=== PATIENT | female | born 1990 | race Caucasian/White ===

== ENCOUNTER 2016-11-25 15:17 | Emergency (ER) | payer MEDICAID ==
[~2016-11-25] VITALS: Ht 160 cm; Wt 68.0 kg
[~2016-11-25 15:17] MED LIST: CLIN150 PO; IBUP800T23 PO; MAGICADU2 SWISH-SWAL; ZANT150T2 PO; ZOFR4TAB3 SL
[2016-11-25 15:26] VITALS: BP 136/91; PULSE 135; RESP 28; TEMP 98.3; O2SAT 99
[2016-11-25] MEDS ORDERED: SODIUM CHLOR 0.9% 1000 ML INJ 1,000 ML IV SCH (15:31)
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
[2016-11-25] MEDS ORDERED: FAMOTIDINE 20 MG/2 ML VIAL IV PUSH ONE (15:45)
[2016-11-25] MEDS ORDERED: SODIUM CHLORIDE 0.9% FLUSH 10 ML FLUSH IVF PRN (15:45)
[2016-11-25 16:10] VITALS: BP 136/91; PULSE 112; RESP 19; O2SAT 98
[2016-11-25 16:15] LABS: AUTOMATED NEUTROPHIL # 15.5 TH/MM3 (1.8-7.7); BASOPHIL # 0.2 TH/MM3 (0-0.2); BASOPHIL % 0.9 % (0.0-2.0); EOSINOPHIL % 0.2 % (0.0-4.0); HEMATOCRIT 33.5 % (35.0-46.0); HEMO FLAGS DIFF FINAL; LYMPH % 21.4 % (9.0-44.0); LYMPHOCYTE # 4.6 TH/MM3 (1.0-4.8); MEAN CELL VOLUME 87.8 FL (80.0-100.0); MEAN CORPUSCULAR HEMOGLOBIN 29.9 PG (27.0-34.0); MEAN CORPUSCULAR HGB CONC 34.1 % (32.0-36.0); MONO % 5.6 % (0.0-8.0); NEUT % 71.9 % (16.0-70.0); PLATELET COUNT 391 TH/MM3 (150-450); RED BLOOD COUNT 3.81 MIL/MM3 (4.00-5.30); WHITE BLOOD COUNT 21.6 TH/MM3 (4.0-11.0)
[2016-11-25 16:30] LABS: ANION GAP 9 MEQ/L (5-15); AST (GOT) 13 U/L (15-37); BICARBONATE 24.2 MEQ/L (21.0-32.0); BLOOD UREA NITROGEN 7 MG/DL (7-18); CHLORIDE 108 MEQ/L (98-107); GLOMERULAR FILTRATION RATE 128 ML/MIN (>89); POTASSIUM 3.7 MEQ/L (3.5-5.1); SODIUM (NA) 141 MEQ/L (136-145)
[2016-11-25 16:33] LABS: ALKALINE PHOSPHATASE 75 U/L (45-117); ALT (GPT) 19 U/L (10-53); TOTAL BILIRUBIN ADULT 0.3 MG/DL (0.2-1.0)
[2016-11-25 16:42] LABS: APTT (PATIENT) 26.8 SEC (24.3-30.1); INTERNATIONAL NORMALIZED RATIO 0.9 RATIO; PROTHROMBIN TIME - PATIENT 10.1 SEC (9.8-11.6)
[2016-11-25] MEDS ORDERED: ALUMINUM/MAGNESIUM/SIMETH 30 ML CUP PO ONE (16:45)
[2016-11-25] MEDS ORDERED: ONDANSETRON HCL 4 MG/2 ML VIAL IV PUSH ONE (16:45)
[2016-11-25] MEDS ORDERED: LIDOCAINE VISCOUS 2% SOLN 15 ML UDC PO ONE (16:45)
[2016-11-25 16:54] VITALS: BP 141/77; PULSE 103; RESP 20; O2SAT 98
[2016-11-25] MEDS ORDERED: PROCHLORPERAZINE INJ 10 MG/2 ML VIAL IV PUSH ONE (17:30)
[2016-11-25] MEDS ORDERED: diphenhydrAMINE HCL 50 MG/ML VIAL IV PUSH ONE (17:30)
--- NOTE | 2016-11-25 17:43 | PD ---
Physical Exam Date Seen by Provider: Nov 25, 2016 Time Seen by Provider: 17:41 Narrative The patient is a 26-year-old female was initially evaluated by the previous physician, Dr. Robles. Please refer to the initial history, physical, diagnostic evaluation, and treatment modality plan. Data Data Last Documented VS Vital Signs Date Time Temp Pulse Resp B/P Pulse Ox O2 Delivery O2 Flow Rate FiO2 11/25/16 18:32 97 16 116/74 97 Room Air 11/25/16 15:26 98.3 Orders Complete Blood Count With Diff (11/25/16 15:31) Comprehensive Metabolic Panel (11/25/16 15:31) Lipase (11/25/16 15:31) Prothrombin Time / Inr (Pt) (11/25/16 15:31) Type And Screen (11/25/16 15:31) Ecg Monitoring (11/25/16 15:31) Iv Access Insert/Monitor (11/25/16 15:31) Oximetry (11/25/16 15:31) Sodium Chlor 0.9% 1000 Ml Inj (Ns 1000 M (11/25/16 15:31) Sodium Chloride 0.9% Flush (Ns Flush) (11/25/16 15:45) Electrocardiogram (11/25/16 15:31) Famotidine Inj (Pepcid Inj) (11/25/16 15:45) Act Partial Throm Time (Ptt) (11/25/16 16:05) Al-Mag Hy-Si 40-40-4 Mg/Ml Liq (Mag-Al P (11/25/16 16:45) Lidocaine 2% Viscous (Xylocaine 2% Visco (11/25/16 16:45) Ondansetron Inj (Zofran Inj) (11/25/16 16:45) Prochlorperazine Inj (Compazine Inj) (11/25/16 17:30) Diphenhydramine Inj (Benadryl Inj) (11/25/16 17:30) Sodium Chlor 0.9% 1000 Ml Inj (Ns 1000 M (11/25/16 19:15) Labs Laboratory Tests Test 11/25/16 16:05 White Blood Count 21.6 TH/MM3 Red Blood Count 3.81 MIL/MM3 Hemoglobin 11.4 GM/DL Hematocrit 33.5 % Mean Corpuscular Volume 87.8 FL Mean Corpuscular Hemoglobin 29.9 PG Mean Corpuscular Hemoglobin 34.1 % Concent Red Cell Distribution Width 14.0 % Platelet Count 391 TH/MM3 Mean Platelet Volume 9.2 FL Neutrophils (%) (Auto) 71.9 % Lymphocytes (%) (Auto) 21.4 % Monocytes (%) (Auto) 5.6 % Eosinophils (%) (Auto) 0.2 % Basophils (%) (Auto) 0.9 % Neutrophils # (Auto) 15.5 TH/MM3 Lymphocytes # (Auto) 4.6 TH/MM3 Monocytes # (Auto) 1.2 TH/MM3 Eosinophils # (Auto) 0.0 TH/MM3 Basophils # (Auto) 0.2 TH/MM3 CBC Comment DIFF FINAL Differential Comment Prothrombin Time 10.1 SEC Prothromb Time International 0.9 RATIO Ratio Activated Partial 26.8 SEC Thromboplast Time Sodium Level 141 MEQ/L Potassium Level 3.7 MEQ/L Chloride Level 108 MEQ/L Carbon Dioxide Level 24.2 MEQ/L Anion Gap 9 MEQ/L Blood Urea Nitrogen 7 MG/DL Creatinine 0.57 MG/DL Estimat Glomerular Filtration 128 ML/MIN Rate Random Glucose 80 MG/DL Calcium Level 8.5 MG/DL Total Bilirubin 0.3 MG/DL Aspartate Amino Transf 13 U/L (AST/SGOT) Alanine Aminotransferase 19 U/L (ALT/SGPT) Alkaline Phosphatase 75 U/L Total Protein 6.1 GM/DL Albumin 2.7 GM/DL Lipase 147 U/L Blood Type A POSITIVE Antibody Screen NEGATIVE [facility] Medical Record Reviewed: Yes Supervised Visit with MAHAD: No Interpretation(s) Laboratory Tests Test 11/25/16 16:05 White Blood Count 21.6 TH/MM3 Red Blood Count 3.81 MIL/MM3 Hemoglobin 11.4 GM/DL Hematocrit 33.5 % Mean Corpuscular Volume 87.8 FL Mean Corpuscular Hemoglobin 29.9 PG Mean Corpuscular Hemoglobin 34.1 % Concent Red Cell Distribution Width 14.0 % Platelet Count 391 TH/MM3 Mean Platelet Volume 9.2 FL Neutrophils (%) (Auto) 71.9 % Lymphocytes (%) (Auto) 21.4 % Monocytes (%) (Auto) 5.6 % Eosinophils (%) (Auto) 0.2 % Basophils (%) (Auto) 0.9 % Neutrophils # (Auto) 15.5 TH/MM3 Lymphocytes # (Auto) 4.6 TH/MM3 Monocytes # (Auto) 1.2 TH/MM3 Eosinophils # (Auto) 0.0 TH/MM3 Basophils # (Auto) 0.2 TH/MM3 CBC Comment DIFF FINAL Differential Comment Prothrombin Time 10.1 SEC Prothromb Time International 0.9 RATIO Ratio Activated Partial 26.8 SEC Thromboplast Time Sodium Level 141 MEQ/L Potassium Level 3.7 MEQ/L Chloride Level 108 MEQ/L Carbon Dioxide Level 24.2 MEQ/L Anion Gap 9 MEQ/L Blood Urea Nitrogen 7 MG/DL Creatinine 0.57 MG/DL Estimat Glomerular Filtration 128 ML/MIN Rate Random Glucose 80 MG/DL Calcium Level 8.5 MG/DL Total Bilirubin 0.3 MG/DL Aspartate Amino Transf 13 U/L (AST/SGOT) Alanine Aminotransferase 19 U/L (ALT/SGPT) Alkaline Phosphatase 75 U/L Total Protein 6.1 GM/DL Albumin 2.7 GM/DL Lipase 147 U/L Blood Type A POSITIVE Antibody Screen NEGATIVE Differential Diagnosis Differential diagnosis includes hyperemesis gravidarum, gastroparesis, gastritis , Elis-Beltran tear, peptic ulcer disease, dehydration, electrolyte abnormality. Narrative Course The patient was initially evaluated by the previous physician. Please refer to the initial history, physical, diagnostic evaluation, and treatment modality plan. The patient was signed out at 5 PM with reevaluation of symptoms and by mouth challenge pending. The patient was reevaluated at 6 PM, her symptoms had improved. The patient was given an oral challenge with curtis don. The patient was able to tolerate curtis don. I had a discussion with the patient regarding the etiology including possible peptic ulcer disease, gastritis, Elis-Beltran tear. The patient will be placed on Zantac and Zofran, is advised clear liquid diet and advance as tolerated. She is advised to symptoms persist to follow-up with gastroenterology and [facility]NAGER. A call will be placed to the patient's current living situation, a assisted for women. Diagnosis Primary Impression: Gastritis Qualified Code: K29.71 - Gastritis with hemorrhage, unspecified chronicity, unspecified gastritis type Patient Instructions: General Instructions Additional Instruction: Zantac and Zofran as directed. Clear liquid diet and advance as tolerated. Follow-up with gastroenterology and/or OB as needed. Med/Other Pt SpecificInfo: Prescription(s) given Scripts Ondansetron Odt (Zofran Odt)4 Mg Tab4 Mg SL Q6HR PRN (Nausea/Vomiting) #10 TAB Ref 0 Prov:Steven Henriquez MD 11/25/16 Ranitidine (Zantac 150 Maximum Strength)150 Mg [id number] Mg PO BID 14 Days Prov:Steven Henriquez MD 11/25/16 Disposition: 01 DISCHARGE HOME Condition: Stable Steven Henriquez MD Nov 25, 2016 17:42
[2016-11-25 18:32] VITALS: BP 116/74; PULSE 97; RESP 16; O2SAT 97
[2016-11-25] MEDS ORDERED: ZOFR4TAB3 SL (19:09)
[2016-11-25] MEDS ORDERED: ZANTTAB PO (19:09)
[2016-11-25] MEDS ORDERED: SODIUM CHLOR 0.9% 1000 ML INJ 1,000 ML IV ONE (19:15)
--- NOTE | 2016-11-25 22:25 | EKG ---
Date Performed: 11/25/2016 Time Performed: 17:05:10 PTAGE: 26 years EKG: SINUS TACHYCARDIA ABNORMAL RHYTHM ECG PREVIOUS TRACING : 04/15/2015 18.28 Compared to the previous tracing rate faster DOCTOR: Azucena Pettit Interpretating Date/Time 11/25/2016 22:23:16
[2017-01-19] MEDS ORDERED: ZANT150T2 PO (11:48)
[2017-02-18] MEDS ORDERED: PRENMIS9 PO (11:36)
== END 2016-11-25 22:50 | disposition home or self-care (01) ==
LOC: NEPB 15:17
DX: O26.892 Other specified pregnancy related conditions, second trimester (principal); K29.71 Gastritis, unspecified, with bleeding; R00.0 Tachycardia, unspecified; Z3A.20 20 weeks gestation of pregnancy
CPT/HCPCS: 80053; 83690; 85025; 85610; 85730; 86850; 86900; 86901; 93005; 96361; 96374; 96375; 99285; J0780; J1200; J2405; J7030

== ENCOUNTER 2017-01-10 23:24 | Emergency (ER) | payer MEDICAID ==
[~2017-01-10 23:24] MED LIST changes: -CLIN150 PO; -IBUP800T23 PO; -MAGICADU2 SWISH-SWAL; -ZANT150T2 PO; +ZANTTAB PO
[2017-01-11 00:42] LABS: AMPHETAMINE, URINE NEG (NEG); BARBITURATES, URINE NEG (NEG); COCAINE, URINE NEG (NEG)
[2017-01-11 00:45] LABS: BLOOD, URINE NEG (NEG); COMMENT (UR) CULT NOT INDICATED; CULTURE IF INDICATED CULT NOT INDICATED; GLUCOSE,URINE NEG (NEG); KETONE, URINE NEG (NEG); MUCUS URINE FEW /lpf (OCC); NITRITE,URINE NEG (NEG); SQUAMOUS EPITHELIAL CELL URINE <1 /hpf (0-5); URINE COLOR LIGHT-YELLOW (YELLW/STRAW)
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
[2017-01-11] MEDS ORDERED: METR-1 PO (01:03)
[2017-01-15 11:28] LABS: BATH SALTS (MDPV) UR NEG (NEG); ECSTASY (MDMA) UR NEG (NEG); GABAPENTIN UR NEG (NEG); HEROIN (6-ACETYLMORPHINE) UR NEG (NEG); HYDROMORPHONE U NEG (NEG); K2 SPICE UR NEG (NEG); OBMETHADONE UR NEG (NEG); OXYCODONE (PERCODAN) NEG (NEG); PHENCYCLIDINE URINE NEG (NEG)
[2017-01-19] MEDS ORDERED: ZANT150T2 PO (11:48)
[2017-02-18] MEDS ORDERED: PRENMIS9 PO (11:36)
== END 2017-01-11 01:06 | disposition home or self-care (01) ==
LOC: HOBED 23:24
DX: O26.892 Other specified pregnancy related conditions, second trimester (principal); N89.8 Other specified noninflammatory disorders of vagina; R10.30 Lower abdominal pain, unspecified; Z72.0 Tobacco use
CPT/HCPCS: 76815; 80307; 81001; 84112; 87210; 99284; G0481

== ENCOUNTER 2017-02-09 13:07 | Emergency (ER) | payer MEDICAID ==
[~2017-02-09 13:07] MED LIST changes: +METR-1 PO; +ZANT150T2 PO
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
[2017-02-18] MEDS ORDERED: PRENMIS9 PO (11:36)
== END 2017-02-09 14:18 | disposition short-term general hospital (02) ==
LOC: HOBED 13:07
DX: O99.613 Diseases of the digestive system complicating pregnancy, third trimester (principal); K92.0 Hematemesis; R10.30 Lower abdominal pain, unspecified; O30.003 Twin pregnancy, unspecified number of placenta and unspecified number of amniotic sacs, third trimester; Z3A.29 29 weeks gestation of pregnancy
CPT/HCPCS: 59025

== ENCOUNTER 2017-02-09 14:45 | Inpatient (IN) | payer MEDICAID ==
[~2017-02-09] VITALS: Ht 160 cm; Wt 80.8 kg
[~2017-02-09 14:45] MED LIST changes: -METR-1 PO; -ZANTTAB PO; -ZOFR4TAB3 SL
[2017-02-09 14:47] VITALS: BP 125/86; PULSE 118; RESP 24; TEMP 97.5; O2SAT 98
[2017-02-09] MEDS ORDERED: SODIUM CHLORIDE 0.9% FLUSH 10 ML FLUSH IVF PRN (15:45)
[2017-02-09 15:57] VITALS: O2SAT 97
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
[2017-02-09 16:09] LABS: AUTOMATED NEUTROPHIL # 17.6 TH/MM3 (1.8-7.7); BASOPHIL # 0.3 TH/MM3 (0-0.2); BASOPHIL % 1.1 % (0.0-2.0); EOSINOPHIL # 0.1 TH/MM3 (0-0.4); EOSINOPHIL % 0.2 % (0.0-4.0); HEMATOCRIT 36.1 % (35.0-46.0); LYMPH % 21.5 % (9.0-44.0); LYMPHOCYTE # 5.1 TH/MM3 (1.0-4.8); MEAN CORPUSCULAR HEMOGLOBIN 29.5 PG (27.0-34.0); MEAN CORPUSCULAR HGB CONC 33.2 % (32.0-36.0); MONO % 3.4 % (0.0-8.0); NEUT % 73.8 % (16.0-70.0); PLATELET COUNT 498 TH/MM3 (150-450); RED BLOOD COUNT 4.05 MIL/MM3 (4.00-5.30); RED CELL DISTRIBUTION WIDTH 14.1 % (11.6-17.2); WHITE BLOOD COUNT 23.8 TH/MM3 (4.0-11.0)
[2017-02-09 16:13] LABS: HEMO FLAGS AUTO DIFF
[2017-02-09] MEDS ORDERED: MORPHINE SULFATE 4 MG/ML INJ IV PUSH ONE (16:15)
[2017-02-09] MEDS ORDERED: ONDANSETRON HCL 4 MG/2 ML VIAL IV PUSH ONE ×2 (16:15→18:45)
[2017-02-09 16:28] LABS: APTT (PATIENT) 22.3 SEC (24.3-30.1); INTERNATIONAL NORMALIZED RATIO 0.9 RATIO; PROTHROMBIN TIME - PATIENT 9.9 SEC (9.8-11.6)
[2017-02-09 16:29] LABS: BICARBONATE 23.8 MEQ/L (21.0-32.0); POTASSIUM 4.1 MEQ/L (3.5-5.1)
[2017-02-09 16:41] LABS: BANDS 3 % (0-6); NEUTROPHIL # MANUAL DIFF 19.3 TH/MM3 (1.8-7.7); POLYS (SEG NEUTROPHILS) 78 % (16-70); WBC DIFF SAMPLE 100
[2017-02-09 16:42] LABS: PLATELET ESTIMATE SMEAR HIGH (NORMAL); PLATELET MORPHOLOGY NORMAL (NORMAL); SCAN/DIFF FINAL DIFF MANUAL
--- NOTE | 2017-02-09 18:03 | RADRPT ---
EXAM DATE/TIME: 02/09/2017 17:43 [facility] COMPARISON: CT ABDOMEN & PELVIS W/O CONTRAST, August 24, 2013, 18:56. INDICATIONS : Patient vomiting blood. ORAL CONTRAST: No oral contrast ingested. RADIATION DOSE: 10.33 CTDIvol (mGy) MEDICAL HISTORY : Renal calculi. History of GI bleed SURGICAL HISTORY : Appendectomy. Splenectomy. Cholecystectomy. ENCOUNTER: Initial ACUITY: 1 day PAIN SCALE: 5/10 LOCATION: Bilateral upper quadrant TECHNIQUE: Volumetric scanning of the abdomen and pelvis was performed. Using automated exposure control and ad justment of the mA and/or kV according to patient size, radiation dose was kept as low as reasonably achievable to obtain optimal diagnostic quality images. FINDINGS: There is no CT evidence of acute appendicitis. There is evidence of a twin . There are mul tiple calcified nonobstructing left renal calculi. There is mild ureteropelvicaliectasis on the righ t without definite obstructing calculus within the right ureter. There is a tiny calcified nonobstruc ting right renal calculus also. Evaluation of the solid organs of the abdomen is limited by the lack of intravenous contrast. Mild degenerative changes and scoliosis of the lumbar spine is noted. CONCLUSION: 1. No CT evidence of acute appendicitis. 2. Mild ureteropelvicaliectasis on the right without definite calcified obstructing calculus noted. 3. Multiple tiny calcified nonobstructing bilateral renal calculi. 4. Twin . 5. Mild scoliosis of the lumbar spine. Donnell Schneider MD on February 09, 2017 at 17:53 Board Certified Radiologist. This report was verified electronically.
[2017-02-09 18:48] VITALS: BP 130/72; PULSE 103; RESP 18; O2SAT 96
[2017-02-09] MEDS ORDERED: ZOLPIDEM TARTRATE 5 MG TAB PO PRN (19:15)
[2017-02-09] MEDS ORDERED: CHLORHEXIDINE GLUCONATE 2 % 1 PACK (2 CLOTHS) TOP PRN (19:15)
[2017-02-09] MEDS ORDERED: SENNOSIDES 8.6 MG TAB PO PRN (19:15)
[2017-02-09] MEDS ORDERED: LACTULOSE SYRUP 20 GM/30 ML CUP PO PRN (19:15)
[2017-02-09] MEDS ORDERED: METOCLOPRAMIDE HCL 10 MG/2 ML VIAL IV PRN (19:15)
[2017-02-09] MEDS ORDERED: MAGNESIUM HYDROXIDE SUSP 30 ML CUP PO PRN (19:15)
[2017-02-09] MEDS ORDERED: BISACODYL 10 MG SUPP RECTAL PRN (19:15)
[2017-02-09] MEDS ORDERED: MISCELLANEOUS NURSING INFORMATION XX SCH (19:15)
[2017-02-09] MEDS ORDERED: RESP: ALBUTEROL 2.5 MG/IPRATROPIUM 0.5 MG NEB (PRN) INH (19:15)
[2017-02-09] MEDS ORDERED: PROCHLORPERAZINE 25 MG SUPP RECTAL PRN (19:15)
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
[2017-02-09] MEDS: PANTOPRAZOLE SODIUM 40 MG VIAL IV SCH (20:31)
[2017-02-09] MEDS: SODIUM CHLOR 0.9% 1000 ML INJ 1,000 ML IV SCH ×2 (20:41→22:06)
[2017-02-09] MEDS: MORPHINE SULFATE 4 MG/ML INJ IV PRN ×2 (20:42→23:13)
[2017-02-09] MEDS: DOCUSATE SODIUM 50 MG/SENNA 8.6 MG TAB PO SCH (21:00)
[2017-02-09] MEDS: FAMOTIDINE 20 MG TAB PO SCH (21:00)
[2017-02-09] MEDS: SODIUM CHLORIDE 0.9% FLUSH 10 ML FLUSH SCH (21:00)
[2017-02-09 21:43] LABS: HEMATOCRIT 35.4 % (35.0-46.0); REVIEW FLAG FINAL
[2017-02-09 22:00] VITALS: BP 116/78; PULSE 94; RESP 20; TEMP 98; O2SAT 96
[2017-02-10] VITALS (12 sets, daily range): BP systolic 104–125; BP diastolic 59–76; PULSE 67–94; RESP 14–20; TEMP 98.2–98.5; O2SAT 95–98
[2017-02-10] MEDS: ONDANSETRON HCL 4 MG/2 ML VIAL IV PRN ×4 (02:53→20:00)
[2017-02-10] MEDS: MORPHINE SULFATE 4 MG/ML INJ IV PRN ×7 (02:53→20:01)
[2017-02-10] MEDS: CHLORHEXIDINE GLUCONATE 2 % 1 PACK (2 CLOTHS) TOP SCH (04:00)
[2017-02-10] MEDS ORDERED: HYDROmorphone HCL PF 1 MG/ML VIAL IV ONE (05:45)
[2017-02-10 06:03] LABS: BASOPHIL # 0.2 TH/MM3 (0-0.2); BASOPHIL % 0.7 % (0.0-2.0); EOSINOPHIL # 0.2 TH/MM3 (0-0.4); EOSINOPHIL % 0.9 % (0.0-4.0); HEMATOCRIT 32.3 % (35.0-46.0); LYMPH % 20.1 % (9.0-44.0); LYMPHOCYTE # 4.6 TH/MM3 (1.0-4.8); MEAN CELL VOLUME 89.3 FL (80.0-100.0); MEAN CORPUSCULAR HEMOGLOBIN 29.7 PG (27.0-34.0); MEAN CORPUSCULAR HGB CONC 33.2 % (32.0-36.0); MONO % 8.8 % (0.0-8.0); NEUT % 69.5 % (16.0-70.0); PLATELET COUNT 424 TH/MM3 (150-450); RED BLOOD COUNT 3.62 MIL/MM3 (4.00-5.30); RED CELL DISTRIBUTION WIDTH 14.2 % (11.6-17.2)
[2017-02-10 06:08] LABS: HEMO FLAGS AUTO DIFF
[2017-02-10] MEDS: SODIUM CHLOR 0.9% 1000 ML INJ 1,000 ML IV SCH (06:25)
[2017-02-10 06:31] LABS: ALKALINE PHOSPHATASE 88 U/L (45-117); ALT (GPT) 20 U/L (10-53); ANION GAP 10 MEQ/L (5-15); AST (GOT) 14 U/L (15-37); BICARBONATE 23.2 MEQ/L (21.0-32.0); BLOOD UREA NITROGEN 5 MG/DL (7-18); CHLORIDE 108 MEQ/L (98-107); GLOMERULAR FILTRATION RATE 156 ML/MIN (>89); MAGNESIUM 1.6 MG/DL (1.5-2.5); POTASSIUM 3.6 MEQ/L (3.5-5.1); SODIUM (NA) 141 MEQ/L (136-145); TOTAL BILIRUBIN ADULT 0.3 MG/DL (0.2-1.0)
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
[2017-02-10 07:41] LABS: BURR CELLS 1+ (NORMAL)
[2017-02-10 07:42] LABS: ACANTHOCYTES OCC (NORMAL); PLATELET ESTIMATE SMEAR HIGH (NORMAL); PLATELET MORPHOLOGY NORMAL (NORMAL); SCAN/DIFF AUTO DIFF CONFIRMED
[2017-02-10] MEDS: SODIUM CHLORIDE 0.9% FLUSH 10 ML FLUSH SCH ×2 (08:02→20:03)
[2017-02-10] MEDS: PANTOPRAZOLE SODIUM 40 MG VIAL IV SCH ×2 (08:03→20:01)
[2017-02-10] MEDS: FAMOTIDINE 20 MG TAB PO SCH ×2 (08:03→20:02)
[2017-02-10] MEDS: DOCUSATE SODIUM 50 MG/SENNA 8.6 MG TAB PO SCH ×2 (08:04→20:03)
[2017-02-10] MEDS ORDERED: LIDOCAINE HCL 2% JELLY 5 ML SYRINGE TOPICAL ONE ×2 (08:30→09:30)
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
[2017-02-10] MEDS: DEXT 5%-NACL 0.45% 1000 ML INJ 1,000 ML IV SCH ×2 (09:23→20:00)
[2017-02-10] MEDS ORDERED: PHENYLEPHRINE HCL 0.5% NASAL SPRAY 15 ML BTL NASAL ONE (09:30)
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
[2017-02-10] MEDS ORDERED: MULTIVIT/MIN/PREN/FOL AC/IRON PRENATAL TAB PO SCH (10:15)
[2017-02-10 10:36] LABS: HEMATOCRIT 32.9 % (35.0-46.0); REVIEW FLAG FINAL
--- NOTE | 2017-02-10 10:40 | HHI.GIFU ---
Subjective Remarks Resting in bed. Has continued to have nausea/vomiting. States she had 6 episodes with hematemesis overnight- varying from scant amount of red blood to "1/2 a cup." D/W patient prior findings for same symptoms- esophagitis/ gastritis and that we would like to avoid invasive procedures/anesthesia, as she is 30 weeks with twins. Pt and significant other report that they would really like to have EGD to know for sure what is going on. Explained that having EGD would likely not change her treatment at this time, as if this is octavio stockton tear or esophagitis/gastritis, she is receiving treatment already. (Aydee Garcia) Objective Vitals I&O Vital Signs Date Time Temp Pulse Resp B/P Pulse Ox O2 Delivery O2 Flow Rate FiO2 02/10/17 06:00 94 02/10/17 04:00 77 02/10/17 04:00 98.3 77 16 104/59 95 02/10/17 02:00 79 02/10/17 00:00 98.2 78 20 125/68 95 02/10/17 00:00 78 02/09/17 22:00 94 02/09/17 22:00 98.0 94 20 116/78 96 02/09/17 21:03 16 02/09/17 18:48 103 18 130/72 96 Room Air 02/09/17 15:57 97 Room Air 02/09/17 14:47 97.5 118 24 125/86 98 Room Air I/O 02/09/17 02/09/17 02/09/17 02/10/17 02/10/17 02/10/17 07:00 15:00 23:00 07:00 15:00 23:00 Intake Total 614 ml Balance 614 ml Intake IV Total 614 ml # Voids 5 Laboratory Laboratory Tests Test 02/09/17 02/09/17 02/09/17 02/10/17 15:40 20:57 21:45 04:43 White Blood Count 23.8 23.0 Red Blood Count 4.05 3.62 Hemoglobin 12.0 11.9 10.7 Hematocrit 36.1 35.4 32.3 Mean Corpuscular Volume 89.0 89.3 Mean Corpuscular Hemoglobin 29.5 29.7 Mean Corpuscular Hemoglobin 33.2 33.2 Concent Red Cell Distribution Width 14.1 14.2 Platelet Count 498 424 Mean Platelet Volume 10.5 10.2 Neutrophils (%) (Auto) 73.8 69.5 Lymphocytes (%) (Auto) 21.5 20.1 Monocytes (%) (Auto) 3.4 8.8 Eosinophils (%) (Auto) 0.2 0.9 Basophils (%) (Auto) 1.1 0.7 Neutrophils # (Auto) 17.6 16.0 Lymphocytes # (Auto) 5.1 4.6 Monocytes # (Auto) 0.8 2.0 Eosinophils # (Auto) 0.1 0.2 Basophils # (Auto) 0.3 0.2 CBC Comment AUTO DIFF AUTO DIFF Differential Total Cells 100 Counted Neutrophils % (Manual) 78 Band Neutrophils % 3 Lymphocytes % 17 Monocytes % 2 Neutrophils # (Manual) 19.3 Differential Comment FINAL DIFF AUTO DIFF MANUAL CONFIRMED Platelet Estimate HIGH HIGH Platelet Morphology Comment NORMAL NORMAL Red Cell Morphology Comment NORMAL Prothrombin Time 9.9 Prothromb Time International 0.9 Ratio Activated Partial 22.3 Thromboplast Time Sodium Level 138 141 Potassium Level 4.1 3.6 Chloride Level 105 108 Carbon Dioxide Level 23.8 23.2 Anion Gap 9 10 Blood Urea Nitrogen 6 5 Creatinine 0.49 0.48 Estimat Glomerular Filtration 153 156 Rate Random Glucose 84 72 Calcium Level 9.6 8.4 Lipase 162 Blood Type A POSITIVE Antibody Screen NEGATIVE Nasal Screen MRSA (PCR) MRSA NOT DETECTED Snyder Cells 1+ Acanthocytes OCC Phosphorus Level 3.3 Magnesium Level 1.6 Total Bilirubin 0.3 Aspartate Amino Transf 14 (AST/SGOT) Alanine Aminotransferase 20 (ALT/SGPT) Alkaline Phosphatase 88 Total Protein 5.8 Albumin 2.3 Imaging Last Impressions Abdomen/Pelvis CT 02/09/17 1706 Signed Impressions: Service Date/Time: Thursday, February 09, 2017 17:43 - CONCLUSION: 1. No CT evidence of acute appendicitis. 2. Mild ureteropelvicaliectasis on the right without definite calcified obstructing calculus noted. 3. Multiple tiny calcified nonobstructing bilateral renal calculi. 4. Twin . 5. Mild scoliosis of the lumbar spine. Donnell Schneider MD Physical Exam HEENT: Normocephalic; atraumatic; no jaundice. CHEST: CTA CARDIAC: RRR ABDOMEN: Soft, nondistended, nontender; no hepatosplenomegaly; bowel sounds are present in all four quadrants. EXTREMITIES: No clubbing, cyanosis, or edema. SKIN: Normal; no rash; no jaundice. AIR QUALITY CONSULTANT: No focal deficits; alert and oriented times three. (Aydee Garcia) Assessment and Plan Plan ASSESSMENT: - GIB, Hematemesis. Pt has hx of hematemesis and has had multiple endoscopies for this in past, both with esophagitis/gastritis as findings. She is currently 30 weeks with twins. States she had 6 episodes with hematemesis overnight- varying from scant amount of red blood to "1/2 a cup." H/H has remained stable and is 10.7/32.3. D/W patient prior findings for same symptoms- esophagitis/gastritis and that we would like to avoid invasive procedures/anesthesia, as she is 30 weeks with twins secondary to increased risks for her and her . Pt and significant other report that they would really like to have EGD to know for sure what is going on. Explained that having EGD would likely not change her treatment at this time, as if this is octavio stockton tear or esophagitis/gastritis, she is receiving treatment already. At this time, her HH is stable. We will change protonix bid dosing to protonix gtt and monitor HH. Recommend trying NGT to [facility] again. Would still try to avoid procedures unless significant active GI bleeding with drop in Hgb. D/W patient. Suspect octavio stockton tear vs. gastritis vs. esophagitis. - Anemia, blood loss. Very mild. Slowly trending down, but likely partly dilutional as well. 10.7/32.3. - Leukocytosis, likely reactive secondary to vomiting and - IUP, 30 weeks with twins per OB service PLAN: - NPO - Attempt NGT placement and place to [facility] - Monitor HH q6h - Change protonix to protonix gtt - Notify GI of significant active GI bleeding or decrease in H/H - Supportive care - Further recommendations to follow based on results of above - EGD only if significant active GI bleeding with drop in Hgb - Pt seen and examined by Dr. Ravi and myself and this note is written on his behalf (Aydee Garcia) Physician Comments Seen and examined with [facility], continues to complain of some hemetemesis. No gi intervention unless active bleeding. Unable to place NG. Clear liquid diet, zofran for nausea. (Virgen Ravi MD) Aydee Garcia Feb 10, 2017 10:40 Virgen Ravi MD Feb 10, 2017 14:30
[2017-02-10 12:46] LABS: HEMATOCRIT 34.4 % (35.0-46.0); REVIEW FLAG FINAL
[2017-02-10 16:40] LABS: HEMATOCRIT 32.3 % (35.0-46.0); REVIEW FLAG FINAL
[2017-02-11] VITALS (14 sets, daily range): BP systolic 106–129; BP diastolic 59–76; PULSE 66–96; RESP 15–22; TEMP 97.6–98.9; O2SAT 96–98
[2017-02-11] MEDS: MORPHINE SULFATE 4 MG/ML INJ IV PRN ×7 (00:02→14:10)
[2017-02-11] MEDS: ONDANSETRON HCL 4 MG/2 ML VIAL IV PRN ×4 (00:31→20:02)
[2017-02-11] MEDS: ACETAMINOPHEN 325 MG TAB PO PRN (00:41)
[2017-02-11 01:08] LABS: HEMATOCRIT 31.3 % (35.0-46.0); REVIEW FLAG FINAL
[2017-02-11] MEDS: CHLORHEXIDINE GLUCONATE 2 % 1 PACK (2 CLOTHS) TOP SCH (04:00)
[2017-02-11 04:40] LABS: HEMATOCRIT 31.4 % (35.0-46.0); MEAN CELL VOLUME 92.3 FL (80.0-100.0); MEAN CORPUSCULAR HEMOGLOBIN 30.3 PG (27.0-34.0); MEAN CORPUSCULAR HGB CONC 32.8 % (32.0-36.0); PLATELET COUNT 414 TH/MM3 (150-450); RED CELL DISTRIBUTION WIDTH 14.3 % (11.6-17.2); REVIEW FLAG FINAL; WHITE BLOOD COUNT 15.4 TH/MM3 (4.0-11.0)
[2017-02-11 04:42] LABS: BICARBONATE 20.3 MEQ/L (21.0-32.0); MAGNESIUM 1.8 MG/DL (1.5-2.5); POTASSIUM 3.6 MEQ/L (3.5-5.1)
[2017-02-11] MEDS: FAMOTIDINE 20 MG TAB PO SCH ×2 (08:18→21:00)
[2017-02-11] MEDS: DEXT 5%-NACL 0.45% 1000 ML INJ 1,000 ML IV SCH ×2 (08:18→14:21)
[2017-02-11] MEDS: DOCUSATE SODIUM 50 MG/SENNA 8.6 MG TAB PO SCH ×2 (08:18→21:00)
[2017-02-11] MEDS: SODIUM CHLORIDE 0.9% FLUSH 10 ML FLUSH SCH ×2 (08:18→20:02)
[2017-02-11] MEDS: PANTOPRAZOLE SODIUM 40 MG VIAL IV SCH ×2 (08:18→20:02)
[2017-02-11] MEDS: SODIUM CHLORIDE 0.9% FLUSH 10 ML FLUSH PRN ×2 (10:41→13:33)
--- NOTE | 2017-02-11 10:53 | HHI.PR ---
Objective Vitals Vital Signs Date Time Temp Pulse Resp B/P Pulse Ox O2 Delivery O2 Flow Rate FiO2 02/11/17 08:00 87 02/11/17 08:00 97.6 87 20 129/67 02/11/17 06:00 84 02/11/17 04:00 66 02/11/17 04:00 98.3 66 15 106/60 98 02/11/17 02:00 84 02/11/17 00:00 96 02/11/17 00:00 98.1 96 22 115/76 96 02/10/17 22:00 89 02/10/17 20:00 98.3 91 20 119/67 98 02/10/17 20:00 89 02/10/17 18:00 82 02/10/17 16:00 98.4 67 14 106/68 97 02/10/17 16:00 67 02/10/17 14:00 82 02/10/17 12:00 98.5 82 16 122/76 96 02/10/17 12:00 85 I/O 02/10/17 02/10/17 02/10/17 02/11/17 02/11/17 02/11/17 07:00 15:00 23:00 07:00 15:00 23:00 Intake Total 614 ml 1221 ml 1702 ml 1340 ml Balance 614 ml 1221 ml 1702 ml 1340 ml Intake Oral 480 ml 1080 ml 720 ml IV Total 614 ml 741 ml 622 ml 620 ml # Voids 5 3 5 4 # Bowel Movements 0 Result Diagram: 02/11/1730902/11/17309 Sandra Faust MD Feb 11, 2017 10:53
--- NOTE | 2017-02-11 11:16 | PD.CONS ---
HPI Service [facility] Hospitalists Consult Requested By Reason for Consult Medical management Primary Care Physician No Primary Care Physician Diagnoses: (1) 30 weeks gestation of (2) Hematemesis (3) Abdominal pain (4) GI bleed History of Present Illness 26-year-old female with 3 and at 30 weeks gestation presented to the emergency room with complaint of hematemesis, abdominal pain, and nausea. Patient was admitted to the ICU. She has been monitored closely. Her H&H remained stable. She has been followed by GI. Hospitalist service consult requested to assist with medical management. The patient is seen in her room in the ICU. She continues to have persistent nausea, abdominal pain. No vomiting this morning. I did note she had red popsicles this morning. Mostly able to tolerate the liquid diet. She admits to positive movement. No vaginal bleeding. Past Family Social History Allergies: Coded Allergies: Toradol (Verified Allergy, Severe, Rash, 02/09/17) Tramadol (Verified Allergy, Severe, Rash, 02/09/17) Ultram (Verified Allergy, Intermediate, Rash, 02/09/17) Reglan (Verified Adverse Reaction, Intermediate, "ACTED POSSESSED", ) *MDRO Multi-Drug Resistant Organism (Verified Adverse Reaction, Unknown, ) MRSA PCR screen (nares) negative - 02/03/15 & 02/16/15 Cleared per Infection Control MRSA wound (groin) 2011 Physical Exam Vital Signs Vital Signs Date Time Temp Pulse Resp B/P Pulse Ox O2 Delivery O2 Flow Rate FiO2 02/11/17 08:00 87 02/11/17 08:00 97.6 87 20 129/67 02/11/17 06:00 84 02/11/17 04:00 66 02/11/17 04:00 98.3 66 15 106/60 98 02/11/17 02:00 84 02/11/17 00:00 96 02/11/17 00:00 98.1 96 22 115/76 96 02/10/17 22:00 89 02/10/17 20:00 98.3 91 20 119/67 98 02/10/17 20:00 89 02/10/17 18:00 82 02/10/17 16:00 98.4 67 14 106/68 97 02/10/17 16:00 67 02/10/17 14:00 82 02/10/17 12:00 98.5 82 16 122/76 96 02/10/17 12:00 85 Physical Exam GENERAL: This is a well-nourished, well-developed patient, in no apparent distress. CARDIOVASCULAR: Normal rate and regular rhythm without murmurs, gallops, or rubs. RESPIRATORY: Good respiratory efforts. Breath sounds equal and clear to auscultation bilaterally. GASTROINTESTINAL: Abdomen gravid, soft, patient reports diffuse tenderness to palpation. Normal active bowel sounds MUSCULOSKELETAL: Extremities without cyanosis, or edema. NEURO: Alert & Oriented x4 to person, place, time, situation. Moves all ext x4 PSYCH: Appropriate mood and affect. Laboratory Laboratory Tests Test 02/10/17 02/10/17 02/11/17 02/11/17 12:10 16:31 00:17 03:10 Hemoglobin 11.6 10.7 10.5 10.3 Hematocrit 34.4 32.3 31.3 31.4 White Blood Count 15.4 Red Blood Count 3.40 Mean Corpuscular Volume 92.3 Mean Corpuscular Hemoglobin 30.3 Mean Corpuscular Hemoglobin 32.8 Concent Red Cell Distribution Width 14.3 Platelet Count 414 Mean Platelet Volume 10.2 Sodium Level 138 Potassium Level 3.6 Chloride Level 107 Carbon Dioxide Level 20.3 Anion Gap 11 Blood Urea Nitrogen 4 Creatinine 0.41 Estimat Glomerular Filtration 188 Rate Random Glucose 68 Calcium Level 8.0 Phosphorus Level 3.2 Magnesium Level 1.8 Result Diagram: 02/11/17 0310 02/11/17 0310 Imaging Last Impressions Abdomen/Pelvis CT 02/09/17 1706 Signed Impressions: Service Date/Time: Thursday, February 09, 2017 17:43 - CONCLUSION: 1. No CT evidence of acute appendicitis. 2. Mild ureteropelvicaliectasis on the right without definite calcified obstructing calculus noted. 3. Multiple tiny calcified nonobstructing bilateral renal calculi. 4. Twin . 5. Mild scoliosis of the lumbar spine. Donnell Schneider MD Assessment and Plan Assessment and Plan 26-year-old female with twin at 30 weeks gestation admitted with hematemesis, nausea and abdominal pain. Hematemesis/nausea - Continue IV Protonix BID -Follow H&H, hemoglobin stable. Monitor for active bleeding. - Gastroenterology following-Dr. Sandoval - Continue to monitor. Continue clear liquid diet. Advance as tolerated. - -D5 half-normal saline at 84 cc/hour Encourage patient to get out of bed Twin - Supportive care -OB Following- Twin . MFM has been consulted. Patient lives at [facility]. History of illicit drug use. Abdominal pain - Pain control- morphine, and Tylenol - CT abdomen negative for acute process - Recommends titrating down pain meds. Could be round ligament pain related to . No acute pathology on abdominal CT. DVT GI prophylaxis: SCDs, Protonix. Hospitalist will continue to follow. Consider transfer to floor. Sandra Faust MD Feb 11, 2017 11:16
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
--- NOTE | 2017-02-11 15:54 | HHI.GIFU ---
Subjective Remarks Pt was transferred to [facility]. Nurse reports that she has not had any nausea/ vomiting or active GI bleeding since arrival to floor. Pt reports that she vomited multiple times this am with "1/2 cup of red blood" prior to be transferred to 2nd floor. Called and spoke to Hermila, Charge nurse. Nurse was Diane and there was no active bleeding last night or today. HH has remained stable. Nurse does report that when she went to see patient earlier, she had a red popsicle and it looked like she did bring some of this up. C/O lower suprapubic pain that radiates to LLQ- constant stabbing pain, requiring IV pain meds. (Aydee Garcia) Objective Vitals I&O Vital Signs Date Time Temp Pulse Resp B/P Pulse Ox O2 Delivery O2 Flow Rate FiO2 02/11/17 12:46 98.9 16 02/11/17 12:46 82 121/63 02/11/17 10:00 82 02/11/17 08:00 87 02/11/17 08:00 97.6 87 20 129/67 02/11/17 06:00 84 02/11/17 04:00 66 02/11/17 04:00 98.3 66 15 106/60 98 02/11/17 02:00 84 02/11/17 00:00 96 02/11/17 00:00 98.1 96 22 115/76 96 02/10/17 22:00 89 02/10/17 20:00 98.3 91 20 119/67 98 02/10/17 20:00 89 02/10/17 18:00 82 02/10/17 16:00 98.4 67 14 106/68 97 02/10/17 16:00 67 I/O 02/10/17 02/10/17 02/10/17 02/11/17 02/11/17 02/11/17 07:00 15:00 23:00 07:00 15:00 23:00 Intake Total 614 ml 1221 ml 1702 ml 1340 ml Balance 614 ml 1221 ml 1702 ml 1340 ml Intake Oral 480 ml 1080 ml 720 ml IV Total 614 ml 741 ml 622 ml 620 ml # Voids 5 3 5 4 # Bowel Movements 0 Laboratory Laboratory Tests Test 02/10/17 02/11/17 02/11/17 16:31 00:17 03:10 Hemoglobin 10.7 10.5 10.3 Hematocrit 32.3 31.3 31.4 White Blood Count 15.4 Red Blood Count 3.40 Mean Corpuscular Volume 92.3 Mean Corpuscular Hemoglobin 30.3 Mean Corpuscular Hemoglobin 32.8 Concent Red Cell Distribution Width 14.3 Platelet Count 414 Mean Platelet Volume 10.2 Sodium Level 138 Potassium Level 3.6 Chloride Level 107 Carbon Dioxide Level 20.3 Anion Gap 11 Blood Urea Nitrogen 4 Creatinine 0.41 Estimat Glomerular Filtration 188 Rate Random Glucose 68 Calcium Level 8.0 Phosphorus Level 3.2 Magnesium Level 1.8 Imaging Last Impressions Abdomen/Pelvis CT 02/09/17 1706 Signed Impressions: Service Date/Time: Thursday, February 09, 2017 17:43 - CONCLUSION: 1. No CT evidence of acute appendicitis. 2. Mild ureteropelvicaliectasis on the right without definite calcified obstructing calculus noted. 3. Multiple tiny calcified nonobstructing bilateral renal calculi. 4. Twin . 5. Mild scoliosis of the lumbar spine. Donnell Schneider MD Physical Exam HEENT: Normocephalic; atraumatic; no jaundice. CHEST: CTA CARDIAC: RRR ABDOMEN: Soft, nondistended, nontender; no hepatosplenomegaly; bowel sounds are present in all four quadrants. EXTREMITIES: No clubbing, cyanosis, or edema. SKIN: Normal; no rash; no jaundice. CORN MILLER: No focal deficits; alert and oriented times three. (Aydee Garcia [facility]) Assessment and Plan Plan ASSESSMENT: - GIB, Hematemesis. Pt has hx of hematemesis and has had multiple endoscopies for this in past, both with esophagitis/gastritis as findings. She is currently 30 weeks with twins. Nurse reports that she has not had any nausea/vomiting or active GI bleeding since arrival to floor. Pt reports that she vomited multiple times this am with "1/2 cup of red blood" prior to be transferred to 2nd floor. Called and spoke to Hermila, Charge nurse- Nurse was Diane and there was no active bleeding last night or today. HH has remained stable. OB Nurse does report that when she went to see patient earlier, she had a red popsicle and it looked like she did bring some of this up. H/H has remained stable and is 10.3/ 31.4. Again D/W patient and significant other prior findings for same symptoms- esophagitis/gastritis and that we would like to avoid invasive procedures/anesthesia, as she is 30 weeks with twins secondary to increased risks for her and her and that unless there was active bleeding, an EGD would not change her course of treatment. She is now tolerating clear liquids. She has not had any further n/v since her arrival to the 2nd floor. She is on Protonix and getting zofran prn. Also has compazine ordered as needed. Does not appear to be having significant active bleeding. Will cont. PPI/Zofran prn, monitor HH, and advance diet as tolerated. Instructed nurse to avoid red popsicles and to notify us if any hematemesis. Suspect octavio stockton tear vs. gastritis vs. esophagitis. EGD only if significant active bleeding, drop in hgb. - Anemia, blood loss. Very mild. Slowly trending down, but likely partly dilutional as well. 10.3/31.4. - Leukocytosis, likely reactive secondary to vomiting and - IUP, 30 weeks with twins per OB service PLAN: - Clear liquids, advance as tolerated - Cont. PPI - Cont. Zofran prn - Notify GI of active bleeding - Okay to d/c home if no further hematemesis and tolerating diet - GI will sign off, please reconsult if active bleeding or as needed - Pt seen and examined by Dr. Ravi and myself and this note is written on his behalf (Aydee Garcia) Physician Comments Seen and examined with SHU, no active bleeding. On protonix/zofran. Advance diet as tolerated. Discussed with Dr Johnson. Gi fu upon dc. Will sign off, thank you (Virgen Ravi MD) Aydee Garcia Feb 11, 2017 15:54 Virgen Ravi MD Feb 11, 2017 16:02
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
[2017-02-11] MEDS: ACETAMINOPHEN/HYDROcodone 325 MG/7.5 MG TAB PO PRN (19:07)
[2017-02-12] MEDS: CHLORHEXIDINE GLUCONATE 2 % 1 PACK (2 CLOTHS) TOP SCH (04:00)
[2017-02-12 04:20] VITALS: TEMP 98
[2017-02-12 04:21] VITALS: BP 118/65; PULSE 82
[2017-02-12] MEDS: ONDANSETRON HCL 4 MG/2 ML VIAL IV PRN ×2 (04:22→09:12)
[2017-02-12 04:34] LABS: HEMATOCRIT 32.8 % (35.0-46.0); MEAN CELL VOLUME 88.9 FL (80.0-100.0); MEAN CORPUSCULAR HEMOGLOBIN 30.4 PG (27.0-34.0); MEAN CORPUSCULAR HGB CONC 34.2 % (32.0-36.0); PLATELET COUNT 448 TH/MM3 (150-450); RED BLOOD COUNT 3.69 MIL/MM3 (4.00-5.30); RED CELL DISTRIBUTION WIDTH 14.3 % (11.6-17.2); REVIEW FLAG FINAL; WHITE BLOOD COUNT 15.7 TH/MM3 (4.0-11.0)
[2017-02-12 04:44] LABS: BICARBONATE 22.5 MEQ/L (21.0-32.0); POTASSIUM 3.8 MEQ/L (3.5-5.1)
[2017-02-12] MEDS: ACETAMINOPHEN/HYDROcodone 325 MG/7.5 MG TAB PO PRN (04:44)
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
[2017-02-12] MEDS: PANTOPRAZOLE SODIUM 40 MG VIAL IV SCH (08:10)
[2017-02-12] MEDS: FAMOTIDINE 20 MG TAB PO SCH (08:11)
[2017-02-12] MEDS: DOCUSATE SODIUM 50 MG/SENNA 8.6 MG TAB PO SCH (08:11)
[2017-02-12 09:39] LABS: AMPHETAMINE, URINE NEG (NEG); BARBITURATES, URINE NEG (NEG); COCAINE, URINE NEG (NEG)
[2017-02-12] MEDS ORDERED: PANT40TA3 PO (09:49)
[2017-02-12] MEDS ORDERED: ZOFR8TAB PO (09:49)
[2017-02-12] MEDS ORDERED: FAMO20TA2 PO (09:49)
[2017-02-12] MEDS ORDERED: ACET1TAB86 PO (09:49)
--- NOTE | 2017-02-12 09:50 | HHI.DCPOC ---
Discharge Care Plan Diagnosis: (1) Abdominal pain (2) Twin gestation in third trimester (3) Hematemesis with nausea (4) Gastritis Report Symptoms to Your Doctor -Temperature above 100.5 degrees -Redness, of incision or excessive or foul smelling drainage -Unusual pain or calf pain -Increased vaginal bleeding -Painful or difficulty urinating -Feelings of extreme sadness or anxiety after 2 weeks Goals to Promote Your Health * To prevent worsening of your condition and complications * To maintain your health at the optimal level Directions to Meet Your Goals Take your medications as prescribed Follow your dietary instruction Follow activity as directed Ensure plenty of rest for recovery Drink fluids for hydration Keep your appointments as scheduled Take your immunizations and boosters as scheduled If your symptoms worsen call your PCP, if no PCP go to Urgent Care Center or Emergency Room Smoking is Dangerous to Your Health. Avoid second hand smoke Call the 24-hour crisis hotline for domestic abuse at Carolyn Armstrong MD R1 Feb 12, 2017 09:50
--- NOTE | 2017-02-12 10:18 | HHI.PR ---
Subjective Remarks Patient still reports nausea. She had an episode of vomiting last night after eating chicken strips and fries. She has been cleared for discharge by GI. She has follow-up with maternal medicine. Patient is returning to [facility]. Objective Vitals Vital Signs Date Time Temp Pulse Resp B/P Pulse Ox O2 Delivery O2 Flow Rate FiO2 02/12/17 04:21 118/65 02/12/17 04:21 82 02/12/17 04:20 98.0 02/11/17 23:50 18 02/11/17 23:49 83 113/59 02/11/17 23:49 98.1 02/11/17 21:00 18 02/11/17 20:00 98.1 18 02/11/17 19:54 89 122/63 02/11/17 16:57 16 02/11/17 16:57 76 121/62 02/11/17 16:55 98.3 02/11/17 12:46 98.9 16 02/11/17 12:46 82 121/63 Result Diagram: 02/12/17 0420 02/12/17 0420 Imaging Last Impressions Abdomen/Pelvis CT 02/09/17 1706 Signed Impressions: Service Date/Time: Thursday, February 09, 2017 17:43 - CONCLUSION: 1. No CT evidence of acute appendicitis. 2. Mild ureteropelvicaliectasis on the right without definite calcified obstructing calculus noted. 3. Multiple tiny calcified nonobstructing bilateral renal calculi. 4. Twin . 5. Mild scoliosis of the lumbar spine. Donnell Schneider MD Objective Remarks GENERAL: This is a well-nourished, well-developed patient, in no apparent distress. CARDIOVASCULAR: Normal rate and regular rhythm without murmurs, gallops, or rubs. RESPIRATORY: Good respiratory efforts. Breath sounds equal and clear to auscultation bilaterally. GASTROINTESTINAL: Abdomen gravid, soft, patient reports mild diffuse tenderness to palpation. Normal active bowel sounds MUSCULOSKELETAL: Extremities without cyanosis, or edema. NEURO: Alert & Oriented x4 to person, place, time, situation. Moves all ext x4 PSYCH: Appropriate mood and affect. A/P Problem List: (1) 30 weeks gestation of ICD Code: Z3A.30 Status: Acute (2) Hematemesis ICD Code: K92.0 Status: Acute (3) Abdominal pain ICD Code: R10.9 Status: Acute (4) GI bleed ICD Code: K92.2 Status: Acute Assessment and Plan 26-year-old female with twin at 30 weeks gestation admitted with hematemesis, nausea and abdominal pain. Hematemesis/nausea: Secondary to known cause gastritis/esophagitis and . Patient has had multiple endoscopies in the recent past. Cleared by GI for discharge - Continue Protonix and famotidine. Zofran as needed. - H&H remained stable throughout the hospitalization. Twin - Supportive care -OB Following- Twin . MFM has been consulted. Patient will be followed twice weekly. Patient lives at [facility]. History of illicit drug use. Abdominal pain - Could be round ligament pain related to . No acute pathology on abdominal CT. Can be discharged with Tylenol. Discharge Planning Hospitalist cleared for discharge Sandra Faust MD Feb 12, 2017 10:17
[2017-02-12] MEDS: ACETAMINOPHEN 325 MG TAB PO PRN (10:45)
[2017-02-12] MEDS ORDERED: ONDANSETRON HCL 4 MG/2 ML VIAL IV PRN (11:15)
[2017-02-18] MEDS ORDERED: PRENMIS9 PO (11:36)
== END 2017-02-12 14:34 | disposition home or self-care (01) | DRG 781 ==
LOC: NEPE 14:45 → NEDA 17:55 → HIMW 21:35 → H2EA 02-11 12:40
PROVIDERS: ADMIT Obstetrics & Gynecology; ATTEND Obstetrics & Gynecology
DX: O99.613 Diseases of the digestive system complicating pregnancy, third trimester (principal); K92.0 Hematemesis; O98.413 Viral hepatitis complicating pregnancy, third trimester; O26.893 Other specified pregnancy related conditions, third trimester; R42 Dizziness and giddiness; K20.9 Esophagitis, unspecified; K29.70 Gastritis, unspecified, without bleeding; R11.2 Nausea with vomiting, unspecified; B19.20 Unspecified viral hepatitis C without hepatic coma; O30.043 Twin pregnancy, dichorionic/diamniotic, third trimester; O99.333 Smoking (tobacco) complicating pregnancy, third trimester; F17.210 Nicotine dependence, cigarettes, uncomplicated; O99.013 Anemia complicating pregnancy, third trimester; D50.0 Iron deficiency anemia secondary to blood loss (chronic); O36.5931 Maternal care for other known or suspected poor fetal growth, third trimester, fetus 1; O36.5932 Maternal care for other known or suspected poor fetal growth, third trimester, fetus 2; O99.283 Endocrine, nutritional and metabolic diseases complicating pregnancy, third trimester; E16.2 Hypoglycemia, unspecified; Z3A.30 30 weeks gestation of pregnancy; Z90.81 Acquired absence of spleen
CPT/HCPCS: 59025; 74176; 76811; 76812; 76937; 80048; 80053; 80307; 83690; 83735; 84100; 85007; 85014; 85018; 85025; 85027; 85610; 85730; 86850; 86900; 86901; 87641; 96374; 96375; C9113; J1170; J2270; J2405; J7030

== ENCOUNTER → 2017-02-16 | Outpatient (CLI) | payer MEDICAID ==
[~2017-02-16] MED LIST changes: +ACET1TAB86 PO; +FAMO20TA2 PO; +METR-1 PO; +PANT40TA3 PO; +PRENMIS9 PO; +ZANTTAB PO; +ZOFR4TAB3 SL; +ZOFR8TAB PO
== END ==
LOC: HPND 09:48
PROVIDERS: ATTEND Obstetrics & Gynecology
DX: O36.5930 Maternal care for other known or suspected poor fetal growth, third trimester, not applicable or unspecified (principal); O30.043 Twin pregnancy, dichorionic/diamniotic, third trimester; O09.33 Supervision of pregnancy with insufficient antenatal care, third trimester; Z3A.29 29 weeks gestation of pregnancy
CPT/HCPCS: 76819

== ENCOUNTER 2017-03-04 13:31 | Emergency (ER) | payer MEDICAID ==
[2017-03-04] VITALS (11 sets, daily range): PULSE 109–122
[~2017-03-04 13:31] MED LIST changes: -METR-1 PO; -ZANT150T2 PO; -ZANTTAB PO; -ZOFR4TAB3 SL
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
[2017-03-04] MEDS ORDERED: ACETAMINOPHEN 325 MG TAB PO ONE (15:15)
[2017-03-04 15:35] LABS: BACTERIA, URINE RARE /hpf; BLOOD, URINE NEG (NEG); COMMENT (UR) CULT NOT INDICATED; CULTURE IF INDICATED CULT NOT INDICATED; GLUCOSE,URINE NEG (NEG); KETONE, URINE NEG (NEG); NITRITE,URINE NEG (NEG); SQUAMOUS EPITHELIAL CELL URINE 3 /hpf (0-5); URINE COLOR YELLOW (YELLW/STRAW)
[2017-03-04] MEDS ORDERED: hydrOXYzine HCL 50 MG/ML VIAL IM ONE (16:00)
[2017-03-04] MEDS ORDERED: hydrOXYzine HCL 50 MG TAB PO ONE (16:15)
== END 2017-03-04 17:11 | disposition home or self-care (01) ==
LOC: HOBED 13:31
DX: O47.03 False labor before 37 completed weeks of gestation, third trimester (principal); O30.043 Twin pregnancy, dichorionic/diamniotic, third trimester; Z3A.33 33 weeks gestation of pregnancy
CPT/HCPCS: 59025; 81001; 82731

== ENCOUNTER 2017-03-04 21:35 | Emergency (ER) | payer MEDICAID ==
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
[2017-03-04] MEDS ORDERED: PROMETHAZINE HCL 25 MG TAB PO ONE (23:00)
[2017-03-04] MEDS ORDERED: BUTORPHANOL TARTRATE INJ 2 MG/ML VIAL IV PUSH ONE (23:00)
[2017-03-04] MEDS ORDERED: MEPERIDINE HCL 50 MG/ML VIAL IM ONE (23:15)
[2017-03-04] MEDS ORDERED: PROMETHAZINE INJ 25 MG/ML VIAL IM ONE (23:15)
== END 2017-03-05 10:51 | disposition home or self-care (01) ==
LOC: HOBED 21:35
DX: O26.893 Other specified pregnancy related conditions, third trimester (principal); O30.043 Twin pregnancy, dichorionic/diamniotic, third trimester; O26.853 Spotting complicating pregnancy, third trimester; R10.2 Pelvic and perineal pain; Z3A.31 31 weeks gestation of pregnancy
CPT/HCPCS: 96372; 99284; J2175; J2550

== ENCOUNTER 2017-03-09 13:26 | Observation (INO) | payer MEDICAID ==
[2017-03-09] MEDS ORDERED: ONDANSETRON HCL 4 MG/2 ML VIAL IV ONE (15:30)
[2017-03-09 15:33] VITALS: BP 127/82; PULSE 112
[2017-03-09 15:44] VITALS: BP 133/88; PULSE 126
[2017-03-09 15:45] VITALS: RESP 18
[2017-03-09] MEDS ORDERED: PANTOPRAZOLE SODIUM 40 MG VIAL IV PUSH ONE (15:45)
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
[2017-03-09 16:15] LABS: HEMATOCRIT 36.1 % (35.0-46.0); MEAN CELL VOLUME 88.9 FL (80.0-100.0); MEAN CORPUSCULAR HEMOGLOBIN 28.7 PG (27.0-34.0); MEAN CORPUSCULAR HGB CONC 32.3 % (32.0-36.0); PLATELET COUNT 459 TH/MM3 (150-450); RED BLOOD COUNT 4.07 MIL/MM3 (4.00-5.30); RED CELL DISTRIBUTION WIDTH 13.9 % (11.6-17.2); REVIEW FLAG FINAL; WHITE BLOOD COUNT 21.6 TH/MM3 (4.0-11.0)
[2017-03-09 16:17] LABS: AMPHETAMINE, URINE NEG (NEG); BARBITURATES, URINE NEG (NEG); COCAINE, URINE NEG (NEG)
[2017-03-09 16:33] LABS: ALT (GPT) 20 U/L (10-53); ANION GAP 11 MEQ/L (5-15); AST (GOT) 19 U/L (15-37); BICARBONATE 21.4 MEQ/L (21.0-32.0); BLOOD UREA NITROGEN 7 MG/DL (7-18); CHLORIDE 107 MEQ/L (98-107); GLOMERULAR FILTRATION RATE 126 ML/MIN (>89); SODIUM (NA) 139 MEQ/L (136-145)
[2017-03-09 16:35] LABS: ALKALINE PHOSPHATASE 135 U/L (45-117); TOTAL BILIRUBIN ADULT 0.4 MG/DL (0.2-1.0)
[2017-03-09] MEDS ORDERED: LACTATED RINGER'S 1000 ML INJ 1,000 ML IV ONE (16:45)
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
[2017-03-09 16:57] VITALS: PULSE 97; O2SAT 98
[2017-03-09] MEDS ORDERED: ACETAMINOPHEN 325 MG TAB PO PRN (17:00)
[2017-03-09 19:51] VITALS: BP 122/73; PULSE 97
[2017-03-09 19:52] VITALS: RESP 16; TEMP 98
[2017-03-09] MEDS: SODIUM CHLORIDE 0.9% FLUSH 10 ML FLUSH IV FLUSH SCH (21:00)
[2017-03-09] MEDS: ONDANSETRON HCL 4 MG/2 ML VIAL IV PRN (22:04)
[2017-03-09] MEDS: SODIUM CHLORIDE 0.9% FLUSH 10 ML FLUSH IV FLUSH PRN (23:02)
[2017-03-09 23:40] LABS: BASOPHIL # 0.2 TH/MM3 (0-0.2); BASOPHIL % 0.9 % (0.0-2.0); EOSINOPHIL # 0.1 TH/MM3 (0-0.4); EOSINOPHIL % 0.6 % (0.0-4.0); HEMATOCRIT 31.3 % (35.0-46.0); LYMPH % 27.7 % (9.0-44.0); LYMPHOCYTE # 5.3 TH/MM3 (1.0-4.8); MEAN CELL VOLUME 88.6 FL (80.0-100.0); MEAN CORPUSCULAR HEMOGLOBIN 29.1 PG (27.0-34.0); MEAN CORPUSCULAR HGB CONC 32.8 % (32.0-36.0); MONO % 7.8 % (0.0-8.0); PLATELET COUNT 372 TH/MM3 (150-450); RED BLOOD COUNT 3.53 MIL/MM3 (4.00-5.30); WHITE BLOOD COUNT 19.1 TH/MM3 (4.0-11.0)
[2017-03-10 00:13] LABS: HEMO FLAGS AUTO DIFF
[2017-03-10 00:26] VITALS: BP 117/60; PULSE 87
[2017-03-10 00:35] VITALS: RESP 16; TEMP 97.9
[2017-03-10] MEDS ORDERED: ZOLPIDEM TARTRATE 10 MG TAB PO PRN (00:45)
[2017-03-10 01:14] LABS: BANDS 4 % (0-6); BASOPHILS 1 % (0-2); POLYS (SEG NEUTROPHILS) 64 % (16-70); WBC DIFF SAMPLE 100
[2017-03-10 01:15] LABS: PLATELET ESTIMATE SMEAR NORMAL (NORMAL); PLATELET MORPHOLOGY ENLARGED (NORMAL)
[2017-03-10 01:18] LABS: ACANTHOCYTES OCC (NORMAL)
[2017-03-10 01:19] LABS: SCAN/DIFF FINAL DIFF MANUAL
[2017-03-10] MEDS: SODIUM CHLORIDE 0.9% FLUSH 10 ML FLUSH IV FLUSH PRN ×2 (03:29→05:59)
[2017-03-10 05:10] VITALS: RESP 16
[2017-03-10] MEDS: ONDANSETRON HCL 4 MG/2 ML VIAL IV PRN (05:59)
[2017-03-10] MEDS ORDERED: PANTOPRAZOLE SODIUM 40 MG VIAL IV PUSH SCH (06:00)
[2017-03-10 07:27] VITALS: BP 139/86; PULSE 108
[2017-03-10 07:34] VITALS: RESP 20; TEMP 98.8
--- NOTE | 2017-03-10 08:56 | PD.OB.ANTE ---
Subjective Diagnosis: (1) GI bleed Diagnosis: Principal (2) Hematemesis Diagnosis: Principal (3) Twin gestation in third trimester Diagnosis: Secondary Interval History 26 YO A1 at 38/5 for di/di twin gestation with reports of hematemesis x6 overnight. Nursing reports a total of 55 cc of bloody fluid in the basin. Pt is tolerating fluids and PO but endorses continued abdominal pain and some lightheadedness. AFVSS. GI will see this morning. Denies CP, SOB, leg swelling/ pain. Antepartum ROS: Denies: New complaints, Loss of fluid, Vaginal bleeding, movement normal, Contractions, Other (Rigo Syed MD R1) Objective Vital Signs Vital Signs Date Time Temp Pulse Resp B/P Pulse Ox O2 Delivery O2 Flow Rate FiO2 03/10/17 07:34 98.8 20 03/10/17 07:27 108 139/86 03/10/17 05:10 16 03/10/17 00:35 97.9 03/10/17 00:35 16 03/10/17 00:26 87 117/60 03/09/17 19:52 98.0 16 03/09/17 19:51 97 122/73 03/09/17 16:57 97 03/09/17 16:57 98 03/09/17 15:45 18 03/09/17 15:44 126 133/88 03/09/17 15:33 112 127/82 Intake & Output 03/10/17 03/10/17 07:00 19:00 Output Total 55 ml Balance -55 ml Output Emesis 55 ml Lab & Micro Results Test 03/09/17 03/09/17 15:00 23:19 White Blood Count 21.6 TH/MM3 19.1 TH/MM3 Red Blood Count 4.07 MIL/MM3 3.53 MIL/MM3 Hemoglobin 11.7 GM/DL 10.3 GM/DL Hematocrit 36.1 % 31.3 % Mean Corpuscular Volume 88.9 FL 88.6 FL Mean Corpuscular Hemoglobin 28.7 PG 29.1 PG Mean Corpuscular Hemoglobin 32.3 % 32.8 % Concent Red Cell Distribution Width 13.9 % 14.0 % Platelet Count 459 TH/MM3 372 TH/MM3 Mean Platelet Volume 10.6 FL 10.4 FL Sodium Level 139 MEQ/L Potassium Level 4.0 MEQ/L Chloride Level 107 MEQ/L Carbon Dioxide Level 21.4 MEQ/L Anion Gap 11 MEQ/L Blood Urea Nitrogen 7 MG/DL Creatinine 0.58 MG/DL Estimat Glomerular Filtration 126 ML/MIN Rate Random Glucose 77 MG/DL Calcium Level 9.4 MG/DL Total Bilirubin 0.4 MG/DL Aspartate Amino Transf 19 U/L (AST/SGOT) Alanine Aminotransferase 20 U/L (ALT/SGPT) Alkaline Phosphatase 135 U/L Total Protein 6.8 GM/DL Albumin 2.5 GM/DL Urine Opiates Screen NEG Urine Barbiturates Screen NEG Urine Amphetamines Screen NEG Urine Benzodiazepines Screen NEG Urine Cocaine Screen NEG Urine Cannabinoids Screen NEG Neutrophils (%) (Auto) 63.0 % Lymphocytes (%) (Auto) 27.7 % Monocytes (%) (Auto) 7.8 % Eosinophils (%) (Auto) 0.6 % Basophils (%) (Auto) 0.9 % Neutrophils # (Auto) 12.0 TH/MM3 Lymphocytes # (Auto) 5.3 TH/MM3 Monocytes # (Auto) 1.5 TH/MM3 Eosinophils # (Auto) 0.1 TH/MM3 Basophils # (Auto) 0.2 TH/MM3 CBC Comment AUTO DIFF Differential Total Cells 100 Counted Neutrophils % (Manual) 64 % Band Neutrophils % 4 % Lymphocytes % 23 % Monocytes % 8 % Basophils % 1 % Neutrophils # (Manual) 13.0 TH/MM3 Differential Comment FINAL DIFF MANUAL Platelet Estimate NORMAL Platelet Morphology Comment ENLARGED Acanthocytes OCC Physical Exam GENERAL: WDWN female lying in bed in mild distress with emesis basin containing about 55 cc of dark red fluid. CARDIOVASCULAR: RRR without murmurs, gallops, or rubs. RESPIRATORY: Breath sounds equal bilaterally with no increased WOB. No accessory muscle use. ABDOMEN/GI: Abdomen soft, mildly tender, without guarding, but pt endorses mild rebound pain. No organomegaly. Fundus: 32 weeks GENITOURINARY: deferred FHT's: (last tracing 03/09) Category: 1 Baseline: 130s Reactive: yes Variability: moderate Decels: none EXTREMITIES: No cyanosis or edema, non-tender, without signs of DVT. (Rigo Syed MD R1) Assessment and Plan Problem List: (1) GI bleed Status: Acute (2) Hematemesis Status: Acute (3) Abdominal pain Status: Acute (4) Twin gestation in third trimester Status: Acute Assessment and Plan 26 YO A1 female at 32/4 for di/di twin gestation recently admitted to ICU in 02/14 for hematemesis/gastritis with recurring hematemesis/gastritis and leukocytosis. 1. Twin IUP at 32/5 weeks - Diamniotic/Dichorionic - IUGR in each fetus dx 02/14 - Reassuring status with Category 1 tracing - Twice weekly testing 2. Hematemesis/gastritis - UDS neg, H/H pending - GI consulted and has signed off on d/c; will follow recs -- Protonix 40 mg, Pepcid 20 mg, Zofran - Tylenol 650 mg PO PRN for pain Dispo: d/c today (Rigo Syed MD R1) Collaborating MD Comments Appreciate GI input with care. Agree with assessment and discharge plan. ( Tabitha Johnson MD) Rigo Syed MD R1 Mar 10, 2017 08:56 Tabitha Johnson MD Mar 17, 2017 07:46
[2017-03-10] MEDS: SODIUM CHLORIDE 0.9% FLUSH 10 ML FLUSH IV FLUSH SCH (09:00)
[2017-03-10] MEDS ORDERED: MULTIVIT/MIN/PREN/FOL AC/IRON PRENATAL TAB PO SCH (09:00)
--- NOTE | 2017-03-10 09:06 | PD.AMA ---
Against Medical Advice Note Pt Condition on Discharge: Stable AMA Statement Rigo Syed MD R1 Mar 10, 2017 09:05
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
[2017-03-10] MEDS ORDERED: ZOFR8TAB PO (09:46)
[2017-03-10 11:19] LABS: HEMATOCRIT 33.7 % (35.0-46.0); REVIEW FLAG FINAL
[2017-03-10] MEDS ORDERED: ONDANSETRON ODT 4 MG TAB PO ONE (12:25)
[2017-03-10] MEDS ORDERED: BETAMETHASONE SOD PHOS/ACETATE SUSP 30 MG/5 ML VIAL IM ONE (13:00)
[2017-03-12 20:26] LABS: BATH SALTS (MDPV) UR NEG (NEG); ECSTASY (MDMA) UR NEG (NEG); GABAPENTIN UR NEG (NEG); HEROIN (6-ACETYLMORPHINE) UR NEG (NEG); HYDROMORPHONE U NEG (NEG); K2 SPICE UR NEG (NEG); OBMETHADONE UR NEG (NEG); OXYCODONE (PERCODAN) NEG (NEG); PHENCYCLIDINE URINE NEG (NEG)
[2017-03-16] MEDS ORDERED: LABE100T2 PO (10:26)
== END 2017-03-10 14:51 | disposition home or self-care (01) ==
LOC: HOBED 13:26 → H2EA 17:13
PROVIDERS: ADMIT Obstetrics & Gynecology Obstetrics; ATTEND Obstetrics & Gynecology Obstetrics
DX: O30.043 Twin pregnancy, dichorionic/diamniotic, third trimester (principal); Z3A.34 34 weeks gestation of pregnancy; K92.0 Hematemesis; M54.5 Low back pain; Z87.891 Personal history of nicotine dependence; E86.0 Dehydration; D72.829 Elevated white blood cell count, unspecified; O99.013 Anemia complicating pregnancy, third trimester; B19.20 Unspecified viral hepatitis C without hepatic coma
CPT/HCPCS: 59025; 80053; 80307; 85007; 85014; 85018; 85027; 96374; 96375; 99285; C9113; G0378; G0481; J0702; J2405; J3010; J7120

== ENCOUNTER → 2017-03-11 | Outpatient (CLI) | payer MEDICAID ==
[~2017-03-11] MED LIST changes: +BETAMETHASONE SOD PHOS/ACETATE SUSP 30 MG/5 ML VIAL IM ONE; +IBUP-232 PO; +LABE100T2 PO; +SENN1TAB PO
== END ==
LOC: HOBG 12:29
PROVIDERS: ATTEND Obstetrics & Gynecology
DX: O60.03 Preterm labor without delivery, third trimester (principal); Z3A.00 Weeks of gestation of pregnancy not specified
CPT/HCPCS: 96372; J0702

== ENCOUNTER 2017-03-23 13:50 | Inpatient (IN) | payer MEDICAID ==
[2017-03-23] VITALS (21 sets, daily range): BP systolic 79–146; BP diastolic 44–88; PULSE 93–126; RESP 18; TEMP 97.8
[~2017-03-23] VITALS: Ht 160 cm; Wt 83.5 kg
[~2017-03-23 13:50] MED LIST changes: -BETAMETHASONE SOD PHOS/ACETATE SUSP 30 MG/5 ML VIAL IM ONE; -IBUP-232 PO; -SENN1TAB PO
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
[2017-03-23] MEDS ORDERED: LACTATED RINGER'S 1000 ML INJ 1,000 ML IV ONE (15:15)
[2017-03-23] MEDS ORDERED: ONDANSETRON HCL 4 MG/2 ML VIAL IV ONE (15:15)
[2017-03-23] MEDS ORDERED: ACETAMINOPHEN 325 MG TAB PO ONE (15:15)
[2017-03-23] MEDS ORDERED: TERBUTALINE INJ 1 MG/ML AMP SQ ONE (16:15)
[2017-03-23] MEDS ORDERED: TERBUTALINE INJ 1 MG/ML AMP SQ PRN (16:15)
[2017-03-23 16:49] LABS: BACTERIA, URINE RARE /hpf; BLOOD, URINE NEG (NEG); COMMENT (UR) CULT NOT INDICATED; CULTURE IF INDICATED CULT NOT INDICATED; GLUCOSE,URINE NEG (NEG); KETONE, URINE 10 mg/dL (NEG); MUCUS URINE FEW /lpf (OCC); NITRITE,URINE NEG (NEG); PH, URINE 7.5 (5.0-8.5); SQUAMOUS EPITHELIAL CELL URINE 2 /hpf (0-5); URINE COLOR YELLOW (YELLW/STRAW)
[2017-03-23 16:50] LABS: MEAN CELL VOLUME 87.5 FL (80.0-100.0); MEAN CORPUSCULAR HEMOGLOBIN 29.2 PG (27.0-34.0); MEAN CORPUSCULAR HGB CONC 33.3 % (32.0-36.0); PLATELET COUNT 461 TH/MM3 (150-450); RED CELL DISTRIBUTION WIDTH 14.1 % (11.6-17.2); REVIEW FLAG FINAL; WHITE BLOOD COUNT 25.9 TH/MM3 (4.0-11.0)
[2017-03-23] MEDS ORDERED: CALCIUM GLUCONATE 10% 1 GM/10 ML VIAL IV PUSH PRN (18:15)
[2017-03-23] MEDS ORDERED: ONDANSETRON HCL 4 MG/2 ML VIAL IV PRN (18:15)
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
[2017-03-23] MEDS: MAGNESIUM SULFATE 40 GM PREMIX 1,000 ML IV SCH (18:54)
[2017-03-23] MEDS ORDERED: MAGNESIUM SULFATE 4 GM PREMIX 100 ML IV ONE (19:15)
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
[2017-03-23] MEDS: AMPICILLIN INJ 2,000 MG in SODIUM CHLORIDE 0.9% INJ 100 ML IV SCH (20:00)
[2017-03-24] VITALS (107 sets, daily range): BP systolic 108–135; BP diastolic 63–89; PULSE 84–118; RESP 16–18; TEMP 97.7–98.2
[2017-03-24] MEDS: AMPICILLIN INJ 2,000 MG in SODIUM CHLORIDE 0.9% INJ 100 ML IV SCH ×3 (03:41→16:59)
[2017-03-24] MEDS: ACETAMINOPHEN 325 MG TAB PO PRN (03:42)
[2017-03-24] MEDS ORDERED: ACETAMIN 325 MG/BUTALBITAL 50 MG/CAFFEINE 40 MG TAB PO PRN (05:00)
[2017-03-24 05:54] LABS: HEMATOCRIT 31.5 % (35.0-46.0); MEAN CELL VOLUME 86.9 FL (80.0-100.0); MEAN CORPUSCULAR HEMOGLOBIN 30.3 PG (27.0-34.0); MEAN CORPUSCULAR HGB CONC 34.8 % (32.0-36.0); PLATELET COUNT 428 TH/MM3 (150-450); RED BLOOD COUNT 3.63 MIL/MM3 (4.00-5.30); RED CELL DISTRIBUTION WIDTH 14.3 % (11.6-17.2); REVIEW FLAG FINAL; WHITE BLOOD COUNT 17.6 TH/MM3 (4.0-11.0)
[2017-03-24 06:23] LABS: ALT (GPT) 22 U/L (10-53); ANION GAP 9 MEQ/L (5-15); AST (GOT) 26 U/L (15-37); BICARBONATE 21.8 MEQ/L (21.0-32.0); BLOOD UREA NITROGEN 7 MG/DL (7-18); CHLORIDE 105 MEQ/L (98-107); GLOMERULAR FILTRATION RATE 136 ML/MIN (>89); POTASSIUM 3.7 MEQ/L (3.5-5.1); SODIUM (NA) 136 MEQ/L (136-145)
[2017-03-24 06:26] LABS: ALKALINE PHOSPHATASE 151 U/L (45-117); TOTAL BILIRUBIN ADULT 0.5 MG/DL (0.2-1.0)
[2017-03-24] MEDS: MAGNESIUM SULFATE 40 GM PREMIX 1,000 ML IV SCH (10:39)
[2017-03-24] MEDS: MULTIVIT/MIN/PREN/FOL AC/IRON PRENATAL TAB PO SCH (10:50)
--- NOTE | 2017-03-24 10:54 | PD.OB.ANTE ---
Subjective Diagnosis: (1) Twin gestation in third trimester Diagnosis: Principal (2) Hematemesis with nausea Diagnosis: Principal (3) Hepatitis C Diagnosis: Secondary Interval History Patient was seen and evaluated this morning. She states that she has a headache but feels well otherwise. She is hungry and asking to eat. Patient denies chest and abdominal pain, heart palpitations, shortness of breath, nausea/vomiting, diarrhea and constipation. Patient denies vaginal bleeding, fluid leakage. She endorses movement. Antepartum ROS: Reports: New complaints (Headache), Denies: Loss of fluid, Vaginal bleeding, movement normal, Contractions Objective Vital Signs Vital Signs Date Time Temp Pulse Resp B/P Pulse Ox O2 Delivery O2 Flow Rate FiO2 03/24/17 10:00 98 118/77 03/24/17 09:00 98 128/82 03/24/17 08:00 91 116/71 03/24/17 07:10 107 03/24/17 07:08 98.2 16 03/24/17 07:05 92 03/24/17 07:00 95 03/24/17 07:00 95 121/78 03/24/17 06:55 93 03/24/17 06:50 91 03/24/17 06:45 89 03/24/17 06:40 90 03/24/17 06:35 92 03/24/17 06:30 96 03/24/17 06:25 93 03/24/17 06:20 90 03/24/17 06:15 96 03/24/17 06:10 93 03/24/17 06:05 90 03/24/17 06:00 86 03/24/17 06:00 90 119/71 03/24/17 05:55 92 03/24/17 05:50 94 03/24/17 05:45 88 03/24/17 05:40 85 03/24/17 05:35 91 03/24/17 05:30 89 03/24/17 05:25 91 03/24/17 05:20 99 03/24/17 05:15 101 03/24/17 05:10 89 03/24/17 05:05 88 03/24/17 05:00 18 03/24/17 05:00 89 121/74 03/24/17 05:00 89 03/24/17 04:55 87 03/24/17 04:50 94 03/24/17 04:45 94 03/24/17 04:40 93 03/24/17 04:35 98 03/24/17 04:30 93 03/24/17 04:25 89 03/24/17 04:20 88 03/24/17 04:15 94 03/24/17 04:10 93 03/24/17 04:05 87 03/24/17 04:00 129/70 03/24/17 04:00 95 03/24/17 04:00 90 03/24/17 03:58 98.0 18 03/24/17 03:55 93 03/24/17 03:50 89 03/24/17 03:45 89 03/24/17 03:40 95 03/24/17 03:35 95 03/24/17 03:30 96 03/24/17 03:25 94 03/24/17 03:20 89 03/24/17 03:15 84 03/24/17 03:10 85 03/24/17 03:05 88 03/24/17 03:00 87 03/24/17 03:00 18 03/24/17 03:00 91 119/66 03/24/17 02:55 85 03/24/17 02:50 95 03/24/17 02:45 92 03/24/17 02:40 92 03/24/17 02:35 98 03/24/17 02:30 95 03/24/17 02:25 94 03/24/17 02:20 93 03/24/17 02:15 90 03/24/17 02:10 92 03/24/17 02:05 88 03/24/17 02:00 18 03/24/17 02:00 89 03/24/17 02:00 88 110/70 03/24/17 01:55 85 03/24/17 01:50 102 03/24/17 01:45 90 03/24/17 01:40 88 03/24/17 01:35 90 03/24/17 01:30 93 03/24/17 01:25 97 03/24/17 01:20 95 03/24/17 01:15 90 03/24/17 01:10 89 03/24/17 01:05 90 03/24/17 01:00 97.7 18 03/24/17 01:00 93 108/68 03/24/17 01:00 118 03/24/17 00:55 89 03/24/17 00:50 100 03/24/17 00:45 95 03/24/17 00:40 95 03/24/17 00:35 95 03/24/17 00:30 96 03/24/17 00:25 96 03/24/17 00:20 94 03/24/17 00:15 88 03/24/17 00:10 97 03/24/17 00:05 97 03/24/17 00:00 90 03/24/17 00:00 93 114/63 03/23/17 23:55 93 03/23/17 23:55 93 03/23/17 23:50 96 03/23/17 23:00 18 03/23/17 23:00 98 107/69 03/23/17 22:12 18 03/23/17 22:00 95 119/66 03/23/17 21:15 18 03/23/17 21:00 108 121/66 03/23/17 20:15 18 03/23/17 20:00 108 123/70 03/23/17 19:15 97.8 18 03/23/17 19:11 107 122/64 03/23/17 19:02 107 111/69 03/23/17 19:01 99 79/44 03/23/17 18:53 107 128/70 03/23/17 17:16 126 129/70 03/23/17 17:00 107 144/88 03/23/17 16:46 103 138/80 03/23/17 16:30 100 146/77 03/23/17 16:17 114 112/55 03/23/17 15:31 99 139/80 03/23/17 15:01 94 136/76 Lab & Micro Results Test 03/23/17 03/23/17 03/24/17 14:00 15:30 05:15 Urine Color YELLOW Urine Turbidity CLEAR Urine pH 7.5 Urine Specific [place] 1.014 Urine Protein NEG mg/dL Urine Glucose (UA) NEG mg/dL Urine Ketones 10 mg/dL Urine Occult Blood NEG Urine Nitrite NEG Urine Bilirubin NEG Urine Urobilinogen LESS THAN 2.0 MG/DL Urine Leukocyte Esterase NEG Urine RBC LESS THAN 1 /hpf Urine WBC 1 /hpf Urine Squamous Epithelial 2 /hpf Cells Urine Bacteria RARE /hpf Urine Mucus FEW /lpf Microscopic Urinalysis Comment CULT NOT INDICATED White Blood Count 25.9 TH/MM3 17.6 TH/MM3 Red Blood Count 4.00 MIL/MM3 3.63 MIL/MM3 Hemoglobin 11.7 GM/DL 11.0 GM/DL Hematocrit 35.0 % 31.5 % Mean Corpuscular Volume 87.5 FL 86.9 FL Mean Corpuscular Hemoglobin 29.2 PG 30.3 PG Mean Corpuscular Hemoglobin 33.3 % 34.8 % Concent Red Cell Distribution Width 14.1 % 14.3 % Platelet Count 461 TH/MM3 428 TH/MM3 Mean Platelet Volume 10.2 FL 10.3 FL Sodium Level 136 MEQ/L Potassium Level 3.7 MEQ/L Chloride Level 105 MEQ/L Carbon Dioxide Level 21.8 MEQ/L Anion Gap 9 MEQ/L Blood Urea Nitrogen 7 MG/DL Creatinine 0.54 MG/DL Estimat Glomerular Filtration 136 ML/MIN Rate Random Glucose 95 MG/DL Calcium Level 7.5 MG/DL Total Bilirubin 0.5 MG/DL Aspartate Amino Transf 26 U/L (AST/SGOT) Alanine Aminotransferase 22 U/L (ALT/SGPT) Alkaline Phosphatase 151 U/L Total Protein 5.9 GM/DL Albumin 2.2 GM/DL Physical Exam GENERAL: Well-nourished, well-developed patient. CARDIOVASCULAR: Regular rate and rhythm without murmurs, gallops, or rubs. RESPIRATORY: Breath sounds equal bilaterally. No accessory muscle use. ABDOMEN/GI: Abdomen soft, non-tender. FHT's: Category: 1 Baseline: 120 Reactive: Reactive Variability: Moderate Decels: None EXTREMITIES: No cyanosis or edema, non-tender, without signs of DVT. Assessment and Plan Problem List: (1) Twin gestation in third trimester Status: Acute (2) Hematemesis with nausea Status: Acute (3) Hepatitis C Status: Acute Assessment and Plan Patient is 26-year-old white female at 34 weeks 5 days with twins who presented to OB triage with regular contractions, requiring admission for magnesium sulfate. Patient initially contracted every 3 minutes, with subcutaneous terbutaline she was rosangela every 4 minutes. Then, on IV magnesium, contractions have decreased further; she has not had regular contractions for the past 12 hours. heart rates are within normal limits and reactive. Patient has had course of IM steroids completed earlier in . Pre-term labor * Urinalysis negative * WBC 26,000 * Treat empirically with Ampicillin Sodium 2,000mg/Sodium Chloride 100ml @ 400 mls/hr q6h IV * Titrate Mg drip this morning * Started Full Liquid Diet - advance as tolerated. * Possible discharge today. Belen Mahan MD R1 Mar 24, 2017 10:54
[2017-03-24] MEDS ORDERED: SODIUM CHLORIDE FLUSH PRN IV FLUSH (18:15)
[2017-03-24] MEDS: SODIUM CHLORIDE FLUSH BID IV FLUSH SCH (19:41)
[2017-03-25] VITALS (63 sets, daily range): BP systolic 87–154; BP diastolic 58–97; PULSE 68–132; RESP 18–20; TEMP 97.9–98.5
[2017-03-25] MEDS ORDERED: ZOLPIDEM TARTRATE 10 MG TAB PO ONE (00:30)
[2017-03-25] MEDS: SODIUM CHLORIDE FLUSH BID IV FLUSH SCH (09:00)
[2017-03-25] MEDS: MULTIVIT/MIN/PREN/FOL AC/IRON PRENATAL TAB PO SCH (09:07)
--- NOTE | 2017-03-25 10:07 | PD.OB.ANTE ---
Subjective Diagnosis: (1) labor Diagnosis: Principal (2) Twin gestation in third trimester Diagnosis: Principal (3) Hematemesis with nausea Diagnosis: Secondary (4) Hepatitis C Diagnosis: Secondary Interval History Magnesium and ampicillin were discontinued overnight. Patient had Cai catheter removed last night. She went to the bathroom and noticed some brown- green discharge. Patient reports feeling weak, sluggish, headache, blurry vision , which she attributes to the magnesium. Patient reports decreased frequency and intensity of contractions. Antepartum ROS: Reports: Vaginal bleeding (between spotting and a period), movement normal, Contractions (less frequent and intense), Denies: Loss of fluid (Jerel Colon MD R1) Objective Vital Signs Vital Signs Date Time Temp Pulse Resp B/P Pulse Ox O2 Delivery O2 Flow Rate FiO2 03/25/17 08:52 98.0 98 132/79 03/25/17 08:52 18 03/25/17 03:47 118/70 03/25/17 03:47 97.9 03/25/17 03:47 86 03/25/17 03:46 18 03/25/17 00:41 18 03/25/17 00:40 98.0 87 126/66 03/24/17 21:32 18 03/24/17 21:00 90 125/72 03/24/17 20:00 88 131/79 03/24/17 19:38 97.8 18 03/24/17 19:00 89 129/82 03/24/17 18:00 99 131/89 03/24/17 17:00 97 135/83 03/24/17 16:38 18 03/24/17 16:00 93 135/67 03/24/17 15:00 92 120/75 03/24/17 14:15 16 03/24/17 14:00 102 133/75 03/24/17 13:00 105 124/74 03/24/17 12:00 100 135/72 03/24/17 11:00 103 134/75 Physical Exam GENERAL: Well-nourished, well-developed patient. CARDIOVASCULAR: Regular rate and rhythm with systolic murmur, but no gallops or rubs. RESPIRATORY: Breath sounds equal bilaterally. No accessory muscle use. ABDOMEN/GI: Abdomen soft, non-tender. Fundus: [Consistent with 35 week twin gestation] GENITOURINARY: Exam performed by Dr. Anderson around noon showed 2-3 cm of dilation and 70% effacement FHT's: Category: Category 1 for both twin A and twin B Baseline: Around 140 for both Reactive: Reactive Variability: Moderate Decels: None EXTREMITIES: No cyanosis or edema, non-tender, without signs of DVT. (Jerel Colon MD R1) Assessment and Plan Problem List: (1) Twin gestation in third trimester Status: Acute (2) Hematemesis with nausea Status: Acute (3) Hepatitis C Status: Acute Assessment and Plan Patient is 26-year-old white female at 34 weeks 6 days with twin gestation who presented to OB triage with regular contractions, requiring admission for magnesium sulfate. Patient initially contracted every 3 minutes, with subcutaneous terbutaline she was rosangela every 4 minutes. Then, on IV magnesium, contractions have decreased further. heart rates are within normal limits and reactive. Patient has had course of IM steroids completed earlier in . 1. Pre-term labor * Urinalysis negative * WBC on admission 25.9 trended down to 17.6 * Discontinued Ampicillin Sodium 2,000mg/Sodium Chloride 100ml @ 400 mls/hr q6h IV * Mg drip turned off overnight * Regular basic diet * Was planning for discharge today, but then patient started rosangela as frequently as every 2-3 minutes * Patient to be seen by OB diagnostics and M doctor today; appreciate recommendations, especially in the context of baby A being vertex and baby B being breech/transverse and IUGR Discussed with Dr. Johnson and Dr. Anderson. (Jerel Colon MD R1) Assessment and Plan 34w6d Patient admitted for PTL. S/p steroid course on prior admission this . Patient c/o stronger UC today. No LOF, VB. She had spotting earlier. SVE on admission was noted 2cm/50%. My exam this today 2-3cm/70%. Repeat exam 3-4cm/75%/-3. Ultrasound from diagnostics at this time notes Cephalic/Cephalic presentation. Baby A IUGR @ 3%tile from US last week. Baby B 11th%tile. CAT I FHT x 2. UC q 3-5 min. D/w CHRISTINE Ruano. Recommends to proceed with delivery and agrees with trial of labor. with largest baby 2490g. D/w patient and her significant other. Reviewed attempted in OR with set up for . Discussed second twin delivery. Cephalic at this time, but position can change in labor or upon delivery of twin A. Reviewed risks and benefits. Also reviewed risks of emergency if indicated. Patient desires BTL if . Papers singed @ 32 weeks. All questions answered. (Lashanda Anderson MD) Jerel Colon MD R1 Mar 25, 2017 10:06 Lashanda Anderson MD Mar 25, 2017 15:31
[2017-03-25] MEDS ORDERED: LACTATED RINGER'S 1000 ML INJ 1,000 ML IV ONE (13:00)
[2017-03-25] MEDS ORDERED: LACTATED RINGER'S 1000 ML INJ 1,000 ML IV SCH (14:40)
[2017-03-25] MEDS ORDERED: LACTATED RINGER'S 1000 ML INJ 1,000 ML IV PRN (14:40)
[2017-03-25] MEDS ORDERED: MINERAL OIL 10 ML VIAL TOPICAL PRN (14:45)
[2017-03-25] MEDS ORDERED: OXYTOCIN 30 UNITS-500ML PREMIX 500 ML IV ONE (14:45)
[2017-03-25] MEDS ORDERED: SODIUM CHLORID 0.9% 500 ML INJ 500 ML IV PRN (14:45)
[2017-03-25] MEDS ORDERED: LIDOCAINE HCL 1% 50 ML VIAL I-DERMAL PRN (14:45)
[2017-03-25] MEDS ORDERED: LIDOCAINE HCL 1% 50 ML VIAL INFIL PRN (14:45)
[2017-03-25] MEDS ORDERED: ONDANSETRON HCL 4 MG/2 ML VIAL IV PRN (14:45)
[2017-03-25] MEDS ORDERED: CITRIC ACID-SODIUM CITRATE LIQ 30 ML UDC PO SCH (14:45)
[2017-03-25] MEDS ORDERED: SODIUM CHLOR 0.9% 1000 ML INJ 1,000 ML IV PRN (15:00)
[2017-03-25] MEDS ORDERED: PENICILLIN G POTASSIUM INJ 5,000,000 UNITS in SODIUM CHLORIDE 0.9% INJ 100 ML IV ONE (15:15)
[2017-03-25] MEDS ORDERED: fentaNYL 2MCG-BUPIV 0.125% INJ 100 ML ONE (16:28)
--- NOTE | 2017-03-25 17:58 | PD.LABORPN ---
Subjective Subjective Patient is resting comfortably in bed, feeling contractions. (Yolanda Cam MD R2) Objective Vital Signs Vital Signs Date Time Temp Pulse Resp B/P Pulse Ox O2 Delivery O2 Flow Rate FiO2 03/25/17 17:35 101 03/25/17 17:30 132 03/25/17 17:30 146/61 03/25/17 17:26 149/66 03/25/17 17:25 104 03/25/17 17:20 136/83 03/25/17 17:20 105 03/25/17 17:15 90 03/25/17 17:15 134/93 03/25/17 17:10 137/72 03/25/17 17:10 99 03/25/17 17:06 18 03/25/17 17:05 101 03/25/17 17:05 152/97 03/25/17 17:05 143/75 03/25/17 17:00 152/97 03/25/17 17:00 88 03/25/17 16:56 143/81 03/25/17 16:55 95 03/25/17 16:50 84 03/25/17 16:48 154/79 03/25/17 16:45 77 03/25/17 16:40 80 03/25/17 16:35 91 03/25/17 16:30 136/75 03/25/17 16:05 18 03/25/17 15:45 20 03/25/17 15:45 98.5 03/25/17 15:45 18 03/25/17 15:43 96 126/83 03/25/17 12:22 89 18 124/72 03/25/17 12:10 98.2 Objective Pelvic Exam: Cervix: midposition Dilatation: 6 Effacement: 80 Station: -2 Presentation: vertex, vertex Membranes: AROM with clear fluid of Twin A Uterine Contractions: q2-3min FHT's: Twin A: Category: I Baseline: 125 Reactive: + Variability: moderate Decels: none Twin B: Category: I Baseline: 130 Reactive: + Variability: moderate Decels: none (Yolanda Cam MD R2) Assessment/Plan Problem List: (1) labor (2) Twin gestation in third trimester (3) Hematemesis with nausea (4) Hepatitis C Assessment and Plan 26 year old at 34-6/7 weeks gestation. 1. Intrauterine twin gestation: Category I tracing, reassuring. 2. labor: Twin A IUGR, Twin B borderline IUGR per MFM recommendations will allow labor to progress. Twins in vertex-vertex presentation. GBS prophylaxis with penicillin per protocol. s/p Betamethasone x 2 on 03/10 and . AROM with clear fluid. Cervical change noted. 3. History of Substance Abuse: UDS on 03/09 negative. Patient has already received Fentanyl during this hospitalization. Repeat UDS pending. 4. Patient desires BTL if indicated. 5. Anticipate vaginal delivery of both twins. sdw Dr. Anderson and Dr. Mahan R1 (Yolanda Cam MD R2) Assessment and Plan 34w5d with PTL. Di/Di Twins with IUGR. Vtx-Vtx. Now with advanced cervical dilation @ 6cm. Gonzalo for GBS prophylaxis received CAT I FHT x 2 AROM with clear fluid, anticipate . NICU aware Anesthesia aware. (Lashanda Anderson MD) Yolanda Cam MD R2 Mar 25, 2017 17:58 Lashanda Anderson MD Mar 25, 2017 23:15
[2017-03-25 18:25] LABS: BLOOD, URINE NEG (NEG); COMMENT (UR) CULT NOT INDICATED; CULTURE IF INDICATED CULT NOT INDICATED; GLUCOSE,URINE NEG (NEG); KETONE, URINE 40 mg/dL (NEG); NITRITE,URINE NEG (NEG); URINE COLOR YELLOW (YELLW/STRAW)
[2017-03-25 18:28] LABS: AMPHETAMINE, URINE NEG (NEG); COCAINE, URINE NEG (NEG)
[2017-03-25] MEDS ORDERED: DO NOT ADMINISTER ANTICOAGULANTS PRN (18:30)
[2017-03-25] MEDS ORDERED: fentaNYL 2MCG-BUPIV 0.125% 100 ML EPIDURAL SCH (18:30)
[2017-03-25] MEDS ORDERED: ePHEDrine/NS 25 MG/5 ML SYR IV PRN (18:30)
[2017-03-25] MEDS ORDERED: NO SYSTEM NARCOTICS PRN (18:30)
[2017-03-25 18:38] LABS: BARBITURATES, URINE POS (NEG)
[2017-03-25] MEDS ORDERED: PENICILLIN G POTASSIUM INJ 2,500,000 UNITS in SODIUM CHLORIDE 0.9% INJ 100 ML IV SCH (19:00)
[2017-03-25] MEDS: ACETAMINOPHEN 325 MG TAB PO PRN (19:30)
--- NOTE | 2017-03-25 20:17 | PD.LABORPN ---
Subjective Subjective Patient resting comfortably, occasionally feeling pressure. (Yolanda Cam MD R2) Objective Vital Signs Vital Signs Date Time Temp Pulse Resp B/P Pulse Ox O2 Delivery O2 Flow Rate FiO2 03/25/17 19:51 68 18 03/25/17 19:51 105/63 03/25/17 19:27 18 03/25/17 19:15 18 87/58 03/25/17 19:15 98.3 03/25/17 19:10 79 03/25/17 19:05 98 03/25/17 19:00 88 03/25/17 18:50 84 03/25/17 18:45 87 03/25/17 18:40 84 03/25/17 18:35 111 03/25/17 18:25 111 03/25/17 18:20 79 03/25/17 18:20 116/67 03/25/17 18:15 112 03/25/17 18:10 84 03/25/17 18:05 120 03/25/17 18:04 123/73 03/25/17 18:00 98.3 03/25/17 18:00 88 18 03/25/17 17:55 89 03/25/17 17:55 89 03/25/17 17:50 78 03/25/17 17:49 122/71 03/25/17 17:49 122/71 03/25/17 17:45 96 03/25/17 17:40 109 03/25/17 17:35 101 03/25/17 17:30 132 03/25/17 17:30 146/61 03/25/17 17:26 149/66 03/25/17 17:25 104 03/25/17 17:20 136/83 03/25/17 17:20 105 03/25/17 17:15 90 03/25/17 17:15 134/93 03/25/17 17:10 137/72 03/25/17 17:10 99 03/25/17 17:06 18 03/25/17 17:05 101 03/25/17 17:05 152/97 03/25/17 17:05 143/75 03/25/17 17:00 152/97 03/25/17 17:00 88 03/25/17 16:56 143/81 03/25/17 16:55 95 03/25/17 16:50 84 03/25/17 16:48 154/79 03/25/17 16:45 77 03/25/17 16:40 80 03/25/17 16:35 91 03/25/17 16:30 136/75 03/25/17 16:05 18 03/25/17 15:45 20 03/25/17 15:45 98.5 03/25/17 15:45 18 03/25/17 15:43 96 126/83 03/25/17 12:22 89 18 124/72 Objective Pelvic Exam: Cervix: midposition Dilatation: 6 Effacement: 80 Station: -1 Presentation: vertex, vertex Membranes: Twin A ruptured Uterine Contractions: q6min FHT's: Twin A: Category: I Baseline: 130 Reactive: + Variability: moderate Decels: none Twin B: Category: I Baseline: 130 Reactive: + Variability: moderate Decels: none (Yolanda Cam MD R2) Assessment/Plan Problem List: (1) labor (2) Twin gestation in third trimester (3) Hematemesis with nausea (4) Hepatitis C Assessment and Plan 26 year old at 34-6/7 weeks gestation. 1. Intrauterine twin gestation: Category I tracing, reassuring. 2. labor: Twin A IUGR, Twin B borderline IUGR per MFM recommendations will allow labor to progress. Twins in vertex-vertex presentation. GBS prophylaxis with penicillin per protocol. s/p Betamethasone x 2 on 03/10 and . AROM with clear fluid. Some cervical change, however contractions are spacing out. Will initiate Pitocin 2-2-30. 3. History of Substance Abuse: UDS on 03/09 negative. Patient has already received Fentanyl during this hospitalization. Repeat UDS negative. 4. Patient desires BTL if indicated. 5. Anticipate vaginal delivery of both twins. sdw Dr. Anderson and Dr. Mahan R1 (Yolanda Cam MD R2) Assessment and Plan Comfortable with CR. s/p AROM. Minimal cervical change and UC have space out now. Will augment with Pitocin. CAT I FHT x 1. Anticipate . (Lashanda Anderson MD) Yolanda Cam MD R2 Mar 25, 2017 20:17 Lashanda Anderson MD Mar 25, 2017 23:17
[2017-03-25] MEDS ORDERED: OXYTOCIN 30 UNITS-500ML PREMIX 500 ML IV SCH (20:30)
[2017-03-26] VITALS (16 sets, daily range): BP systolic 96–136; BP diastolic 46–76; PULSE 63–74; RESP 16–20; TEMP 97.9–98.6; O2SAT 98–100
[2017-03-26] MEDS ORDERED: OXYTOCIN 10 UNIT/ML AMP ONE (04:12)
[2017-03-26] MEDS ORDERED: DICLOFENAC SODIUM 37.5 MG/ML VIAL IV PUSH ONE (04:29)
[2017-03-26] MEDS ORDERED: MORPHINE SULFATE PF 10 MG/10 ML VIAL ONE (04:29)
[2017-03-26] MEDS ORDERED: ONDANSETRON HCL 4 MG/2 ML VIAL ONE (04:29)
[2017-03-26] MEDS ORDERED: diphenhydrAMINE HCL 50 MG/ML VIAL ONE (04:42)
[2017-03-26] MEDS ORDERED: oxyCODONE/ACETAMINOPHEN 5 MG/325 MG TAB PO PRN (05:15)
[2017-03-26] MEDS ORDERED: ONDANSETRON HCL 4 MG/2 ML VIAL IV PUSH PRN (05:15)
[2017-03-26] MEDS ORDERED: OXYTOCIN 30 UNITS-500ML PREMIX 500 ML IV ONE (05:15)
[2017-03-26] MEDS ORDERED: SODIUM CHLORIDE 0.9% FLUSH 10 ML FLUSH IV FLUSH PRN (05:15)
[2017-03-26] MEDS ORDERED: KETOROLAC TROMETHAMINE 30 MG/ML (IVP) VIAL IV PUSH SCH (06:00)
[2017-03-26] MEDS ORDERED: OXYTOCIN 30 UNITS-500ML PREMIX 500 ML ONE (06:05)
--- NOTE | 2017-03-26 06:10 | PD.OP ---
Operative Report Date of Surgery: Mar 26, 2017 Preoperative Diagnosis: Postoperative Diagnosis: Procedure: Spontaneous Vaginal Delivery of Twin A Primary LTUI of Twin B Bilateral Tubal Ligation Salpingectomy Anesthesia: Epidural Surgeon: Lashanda Anderson [employer] Teacher(s): Heating Element Repairer Resident Surgeon: Belen Mahan MD Operation and Findings: PROCEDURE AND OPERATIVE REPORT PREOPERATIVE DIAGNOSIS: 35 weeks Gestation Di-Di Twin Gestation Labor Suspected IUGR Gestational Hypertension Hepatitis C Desired Permanent Sterilization Compound Hand and Foot of Twin B POSTOPERATIVE DIAGNOSIS: 35 weeks Gestation Di-Di Twin Gestation Labor Gestational Hypertension Hepatitis C Desired Permanent Sterilization Compound Hand and Foot of Twin B SPECIMEN(S) TO LAB: Cord blood of Twin A and Twin B Placenta Fallopian Tubes segments EBL: 700mL UOP: clear IVF: Crystalloid 2 Liters DRAINS: Cai DRESSINGS: ABD dressing COMPLICATIONS: None apparent INDICATIONS: 26 yo @ 35 weeks with labor. Di-Di Twins with suspected IUGR of Twin A and borderline IUGR of Twin B. Patient with gestational hypertension without proteinuria or symptoms. Vertex-Vertex presentation confirmed. AROM at 6cm dilation. Pitocin augmentation with protracted labor. OPERATIVE FINDINGS: Normal uterus, ovaries, tubes. Twin A, Male, born at 3:33 AM, with of 9/9, 2030g Twin B, Female, born at 4:23 AM, with of 8/9, 2030g DESCRIPTION: The risks, benefits, indications and alternatives of the procedure were reviewed with the patient and informed consent was obtained. The patient was taken to the operating room where epidural anesthesia was found to be adequate. A double set up in the OR was ready. She had an uncomplicated of Twin A. Baby was placed on the maternal abdomen with the pediatric team in attendance, the cord was clamped after 45 seconds. The ultrasound confirmed Twin B was in the oblique position. The head was easily moved to the vertex position and again confirmed with the ultrasound. The heart rate remained reassuring. The vertex was palpated on vaginal examination with bulging membranes. AROM of Twin B noted clear fluid. The vertex was well applied to the dilated cervix. With subsequent pushing the foot and hand were noted in compound presentation and could not be reduced. The patient was offered a after a trial of pushing, the patient agreed and had been previously counseled. She was prepared and draped in the normal sterile fashion in the dorsal supine position with a leftward tilt. Epidural anesthesia remained adequate. Ancef was given pre-op and SCD hose had been placed. Time-out was performed for a primary and bilateral tubal ligation or salpingectomy. A Pfannenstiel skin incision was made with the scalpel. The incision was then carried through the underlying layer of fascia with the Bovie. The fascia was incised in the midline and the incision extended laterally with the Soto scissors. The superior aspect of the fascial incision was grasped with the Rasheed clamps, elevated, and the underlying rectus muscles dissected off bluntly and using the Bovie. In a similar fashion the inferior aspect of this incision was grasped and the rectus muscles dissected off of the fascia. The rectus muscles were in the midline and the peritoneum entered bluntly over a filmy area. The bladder blade was placed and a bladder flap made with the Metzenbaum scissors. A bladder flap created digitally with replacement of the bladder blade. The lower uterine segment was contracted and an incision was made slighly superiorly in a transverse fashion with the scalpel. The uterine incision was extended laterally with the Banjo scissors. The infants head and shoulders were delivered without difficulty. The cord was double clamped and cut after 45 seconds. The infant was handed to the waiting pediatric team. Cord blood was obtained. The placenta was then removed manually, was intact and grossly normal, and was sent to pathology. The uterus was exteriorized and cleared of all clots and debris. The uterine incision was closed with a running, locking layer of 0-Chromic. A figure of eight stitch was placed midline for hemostasis. The left and right fallopian tubes were then identified and grasped with the [place] clamp on the isthmic area. An avascular area in the mesosalpinx directly under the tube is opened with the Bovie, freeing the tube. The tube and fimbria was then ligated proximally and distally with 0-plain gut suture placed under the mesosalpinx. The tube was transected and sent to pathology. Hemostasis was assured. The uterus was returned to the abdomen, inspected again and noted to be hemostatic. The gutters were irrigated and cleared of all clots and debris. The peritoneal fascia and muscle bellies were hemostatic. The fascia was re- approximated from the left to the right corner in a running fashion with 0- Vicryl. The subcutaneous space was irrigated and hemostatic. The subcutaneous space was closed in layers. The skin approximated with 4-0 Monocryl. The patient tolerated the procedure well. Sponge, lap and needle counts were correct x 2. Ancef IVPB was given prior to the procedure. Pitocin 30 units in her regular IV fluids was given after placenta delivery. The patient was taken to the recovery unit in good condition. There were no operative complications. Lashanda Anderson MD Department of Obstetrics and Gynecology Lashanda Anderson MD Mar 26, 2017 06:10
--- NOTE | 2017-03-26 09:08 | HHI.OB ---
Subjective Post Day: 0 Remarks Doing well this AM. Noted "soreness". Cai cath in place. Tolerating a regular diet. she has not ambulated at this time. Twins are both in the NICU and doing very well per patient. Objective Vitals/I&O Vital Signs Date Time Temp Pulse Resp B/P Pulse Ox O2 Delivery O2 Flow Rate FiO2 03/26/17 06:03 63 18 118/74 98 03/26/17 05:15 98.3 Objective Remarks GENERAL: Well-nourished, well-developed patient. NAD INC: Dressing EXT: SCD hose Assessment/Plan Problem List: (1) labor (2) Twin gestation in third trimester (3) Hematemesis with nausea (4) Hepatitis C Assessment and Plan S/p of Twin A and Primary of Twin B Doing well this AM Patient reports she cannot take Toradol which was ordered, but does not remember her reaction, it was in childhood and she thinks it was nausea. She tolerates other NSAIDS including Motrin. continue post-operative care Lashanda Anderson MD Mar 26, 2017 09:08
[2017-03-26] MEDS: oxyCODONE/ACETAMINOPHEN 5 MG/325 MG TAB PO PRN ×2 (09:45→14:03)
[2017-03-26] MEDS: DOCUSATE SODIUM 50 MG/SENNA 8.6 MG TAB PO PRN ×2 (09:45→22:23)
[2017-03-26] MEDS: SIMETHICONE 80 MG CHEWABLE TAB PO PRN (09:46)
[2017-03-26] MEDS ORDERED: LACTATED RINGER'S 1000 ML INJ 1,000 ML IV SCH (10:06)
[2017-03-26] MEDS ORDERED: OXYTOCIN 30 UNITS-500ML PREMIX 500 ML IV PRN (15:15)
[2017-03-26] MEDS ORDERED: MORPHINE SULFATE 4 MG/ML INJ IV PUSH ONE (16:00)
[2017-03-26] MEDS: oxyCODONE/ACETAMINOPHEN 7.5 MG/325 MG TAB PO PRN ×2 (18:44→22:23)
[2017-03-26] MEDS: IBUPROFEN 600 MG TAB PO PRN (22:35)
[2017-03-27] VITALS: BP 98/61; PULSE 62; RESP 16; TEMP 97.8; O2SAT 99
[2017-03-27] MEDS: oxyCODONE/ACETAMINOPHEN 7.5 MG/325 MG TAB PO PRN ×4 (02:15→19:48)
[2017-03-27] MEDS ORDERED: IBUPROFEN 600 MG TAB PO PRN (05:15)
[2017-03-27] MEDS: IBUPROFEN 600 MG TAB PO PRN ×3 (06:05→19:48)
[2017-03-27] MEDS ORDERED: MORPHINE SULFATE 4 MG/ML INJ IV PUSH ONE ×2 (07:30→15:30)
[2017-03-27 08:00] VITALS: BP 106/68; PULSE 71; RESP 16; TEMP 97.9
--- NOTE | 2017-03-27 08:27 | HHI.OB ---
Subjective Post Operative Day: 1 Remarks Patient is a 26-year-old delivered at 35 weeks. Patient is day one after spontaneous vaginal delivery of baby A and primary of baby B. Patient's pain is not well-controlled; patient had just received 2 tabs Percocet 7.5 and Motrin but was complaining of 8/10 pain. She describes the pain as crampy and sore. Patient reports eating and drinking without any nausea or vomiting. Patient reports minimal bleeding. Patient has passed gas but has not had a bowel movement. Patient is walking without lower extremity pain or shortness of breath. Patient has decided to bottlefeed. Objective Vitals/I&O Vital Signs Date Time Temp Pulse Resp B/P Pulse Ox O2 Delivery O2 Flow Rate FiO2 03/27/17 00:00 16 03/27/17 00:00 97.8 99 03/27/17 00:00 62 98/61 03/26/17 19:40 98.6 73 20 98 03/26/17 19:40 98.6 98 03/26/17 19:40 112/73 03/26/17 19:40 73 20 112/73 03/26/17 16:00 98.4 74 16 116/67 03/26/17 12:00 68 18 120/68 03/26/17 12:00 98.2 Result Diagram: 03/24/1751403/24/17514 Objective Remarks GENERAL: Well-nourished, well-developed patient. CARDIOVASCULAR: Regular rate and rhythm without murmurs, gallops, or rubs. RESPIRATORY: Breath sounds equal bilaterally. No accessory muscle use. ABDOMEN/GI: Abdomen soft, tender below naval to incision, bowel sounds present. Incision: Covered. Fundus: Firm, non-tender at umbilicus. GENITOURINARY: Light to moderate bleeding. EXTREMITIES: No cyanosis or edema, non-tender, without signs of DVT. Medications and IVs Current Medications Medications (Trade) Dose Ordered Sig/Kayode Route Start Time Stop Time Status Last Admin (NS Flush) 2 ml BID IV FLUSH 03/26/17 09:00 (NS Flush) 2 ml UNSCH PRN IV FLUSH 03/26/17 05:15 (Mylicon Chew) 80 mg QID PRN PO 03/26/17 05:15 03/26/17 09:46 (Percocet 5-325 Mg) 1 tab Q4H PRN PO 03/26/17 05:15 (Tamara-Colace) 2 tab Q12H PRN PO 03/26/17 05:15 03/26/17 22:23 (M-M-R Ii Inj) 0.5 ml ONCE ONCE SQ 03/27/17 16:00 03/27/17 16:01 (Boostrix Inj) 0.5 ml ONCE ONCE IM 03/27/17 16:00 03/27/17 16:01 (Zofran Inj) 4 mg Q6H PRN IV PUSH 03/26/17 05:15 (Percocet 7.5-325 Mg) 2 tab Q4H PRN PO 03/26/17 17:00 03/27/17 06:05 (Motrin) 600 mg Q6H PRN PO 03/26/17 22:30 03/27/17 06:05 Assessment/Plan Problem List: (1) labor (2) Twin gestation in third trimester (3) Hematemesis with nausea (4) Hepatitis C Assessment and Plan Patient is a 26-year-old delivered at 35 weeks. Patient is day one after spontaneous vaginal delivery of baby A and primary of baby B. * Continue routine care. * Motrin and Percocet when necessary for pain. Received morphine 4mg once IV Push this morning. * Encourage OOB. * Pelvic rest for 6 weeks will need follow-up appointment at that time. * Contraception: Tubal at time of . * Anticipate discharge Thursday or Thursday. Belen Mahan MD R1 Mar 27, 2017 08:27
[2017-03-27 12:12] LABS: AUTOMATED NEUTROPHIL # 15.1 TH/MM3 (1.8-7.7); BASOPHIL # 0.1 TH/MM3 (0-0.2); BASOPHIL % 0.3 % (0.0-2.0); EOSINOPHIL # 0.2 TH/MM3 (0-0.4); HEMATOCRIT 35.1 % (35.0-46.0); LYMPH % 23.5 % (9.0-44.0); LYMPHOCYTE # 5.3 TH/MM3 (1.0-4.8); MEAN CORPUSCULAR HEMOGLOBIN 28.9 PG (27.0-34.0); MEAN CORPUSCULAR HGB CONC 32.5 % (32.0-36.0); MONO % 7.8 % (0.0-8.0); NEUT % 67.4 % (16.0-70.0); PLATELET COUNT 464 TH/MM3 (150-450); RED BLOOD COUNT 3.94 MIL/MM3 (4.00-5.30); RED CELL DISTRIBUTION WIDTH 14.5 % (11.6-17.2); WHITE BLOOD COUNT 22.4 TH/MM3 (4.0-11.0)
[2017-03-27 12:19] LABS: HEMO FLAGS AUTO DIFF
[2017-03-27 12:50] LABS: ACANTHOCYTES OCC (NORMAL); METAMYELOCYTES 1 % (0-1); NEUTROPHIL # MANUAL DIFF 17.7 TH/MM3 (1.8-7.7); PLATELET ESTIMATE SMEAR HIGH (NORMAL); PLATELET MORPHOLOGY NORMAL (NORMAL); POLYS (SEG NEUTROPHILS) 78 % (16-70); SCAN/DIFF FINAL DIFF MANUAL; WBC DIFF SAMPLE 100
--- NOTE | 2017-03-27 15:36 | HHI.OB ---
Subjective Post Operative Day: 1 Remarks Patient continues to be in pain. She admits to low pain threshold. She is also experiencing anxiety; she is worried about the incision opening. * Spoke to patient about reason for her [facility] stay. Patient claims that she is at [facility] involuntarily after arrest for possession with marijuana and failing a drug test in her probation period. 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 * As per EMR, patient tested positive for opiates, benzodiazepine, cocaine, and cannabinoids in 2014. Benzodiazepine as recent as 2016. Cannabinoids as recent as 2017. * Spoke to patient about her anxiety. Explained that her incision will not open with movement; reiterated lifting restrictions. Patient felt that once her pain is better controlled, she will feel less anxious. (Belen Mahan MD R1) Remarks Patient seen and evaluated with resident under direct supervision, agree with assessment and plan. (Cristopher Bernardo MD) Objective Vitals/I&O Vital Signs Date Time Temp Pulse Resp B/P Pulse Ox O2 Delivery O2 Flow Rate FiO2 03/27/17 08:00 97.9 71 16 106/68 03/27/17 00:00 16 03/27/17 00:00 97.8 99 03/27/17 00:00 62 98/61 03/26/17 19:40 98.6 73 20 98 03/26/17 19:40 98.6 98 03/26/17 19:40 112/73 03/26/17 19:40 73 20 112/73 03/26/17 16:00 98.4 74 16 116/67 (Belen Mahan MD R1) Result Diagram: 03/27/17 1042 03/24/17 0515 Objective Remarks GENERAL: Well-nourished, well-developed patient. CARDIOVASCULAR: Regular rate and rhythm without murmurs, gallops, or rubs. RESPIRATORY: Breath sounds equal bilaterally. No accessory muscle use. ABDOMEN/GI: Abdomen soft, tender below naval to incision, bowel sounds present. Incision: Covered. Fundus: Firm, non-tender at umbilicus. GENITOURINARY: Light to moderate bleeding. EXTREMITIES: No cyanosis or edema, non-tender, without signs of DVT. Medications and IVs Current Medications Medications (Trade) Dose Ordered Sig/Kayode Route Start Time Stop Time Status Last Admin (NS Flush) 2 ml BID IV FLUSH 03/26/17 09:00 (NS Flush) 2 ml UNSCH PRN IV FLUSH 03/26/17 05:15 (Mylicon Chew) 80 mg QID PRN PO 03/26/17 05:15 03/26/17 09:46 (Percocet 5-325 Mg) 1 tab Q4H PRN PO 03/26/17 05:15 (Tamara-Colace) 2 tab Q12H PRN PO 03/26/17 05:15 03/26/17 22:23 (M-M-R Ii Inj) 0.5 ml ONCE ONCE SQ 03/27/17 16:00 03/27/17 16:01 (Boostrix Inj) 0.5 ml ONCE ONCE IM 03/27/17 16:00 03/27/17 16:01 (Zofran Inj) 4 mg Q6H PRN IV PUSH 03/26/17 05:15 (Percocet 7.5-325 Mg) 2 tab Q4H PRN PO 03/26/17 17:00 03/27/17 11:29 (Motrin) 600 mg Q6H PRN PO 03/26/17 22:30 03/27/17 11:30 (Morphine Inj) 4 mg ONCE ONCE IV PUSH 03/27/17 15:30 03/27/17 15:31 (Belen Mahan MD R1) Assessment/Plan Problem List: (1) labor (2) Twin gestation in third trimester (3) Hematemesis with nausea (4) Hepatitis C Assessment and Plan Patient is a 26-year-old delivered at 35 weeks. Patient is day one after spontaneous vaginal delivery of baby A and primary of baby B. * Continue routine care. * Motrin and Percocet when necessary for pain. Ordered afternoon dose of morphine 4mg once IV Push. * Encourage OOB. * Pelvic rest for 6 weeks will need follow-up appointment at that time. * Contraception: Tubal at time of . * Anticipate discharge Thursday or Thursday. (Belen Mahan MD R1) Belen Mahan MD R1 Mar 27, 2017 15:36 Cristopher Bernardo MD Mar 27, 2017 16:29
[2017-03-27] MEDS ORDERED: MEASLES, MUMPS, RUBELLA VACCINE 0.5 ML VIAL SQ ONE (16:00)
[2017-03-27] MEDS ORDERED: DIPHTH/TETANUS/ACEL PERTUSSIS (BOOSTER) 0.5 ML VIAL/PFS IM ONE (16:00)
[2017-03-27 19:30] VITALS: BP 117/70; PULSE 70; RESP 16; TEMP 98.1
[2017-03-28] MEDS: oxyCODONE/ACETAMINOPHEN 7.5 MG/325 MG TAB PO PRN ×5 (01:23→22:32)
[2017-03-28] MEDS: IBUPROFEN 600 MG TAB PO PRN ×4 (01:38→22:31)
[2017-03-28] MEDS: DOCUSATE SODIUM 50 MG/SENNA 8.6 MG TAB PO PRN ×2 (07:44→14:35)
[2017-03-28 08:00] VITALS: BP 122/68; PULSE 82; RESP 16; TEMP 97.7; O2SAT 99
[2017-03-28] MEDS ORDERED: MORPHINE SULFATE 4 MG/ML INJ IV PUSH ONE (09:00)
--- NOTE | 2017-03-28 09:27 | HHI.OB ---
Subjective Post Operative Day: 2 Remarks Patient is a 26-year-old delivered at 35 weeks and 0 days. Patient is day 2 after twin delivery with vaginal delivery of first twin and C- section for second twin and then tubal ligation. Patient's pain is mostly well- controlled, but she continues to request additional pain medication. She now also requests anti-anxiety medication. Patient reports eating and drinking without any nausea or vomiting. Patient reports minimal bleeding. Patient has not passed gas nor bowel movements. Patient is walking without lower extremity pain or shortness of breath. Patient reports desire for bottle-feeding. (Jerel Colon MD R1) Remarks Patient seen and evaluated with resident under direct supervision, agree with assessment and plan. (Cristopher Bernardo MD) Objective Vitals/I&O Vital Signs Date Time Temp Pulse Resp B/P Pulse Ox O2 Delivery O2 Flow Rate FiO2 03/28/17 08:00 97.7 82 16 122/68 99 03/27/17 19:30 98.1 70 16 117/70 (Jerel Colon MD R1) Result Diagram: 03/27/17 1042 03/24/17 0515 Objective Remarks GENERAL: Well-nourished, well-developed patient. CARDIOVASCULAR: Regular rate and rhythm without murmurs, gallops, or rubs. RESPIRATORY: Breath sounds equal bilaterally. No accessory muscle use. ABDOMEN/GI: Abdomen soft, tender below naval to incision, bowel sounds present. Incision: Covered. Fundus: Firm, non-tender at umbilicus. GENITOURINARY: Light bleeding. EXTREMITIES: No cyanosis or edema, non-tender, without signs of DVT. Medications and IVs Current Medications Medications (Trade) Dose Ordered Sig/Kayode Route Start Time Stop Time Status Last Admin (NS Flush) 2 ml BID IV FLUSH 03/26/17 09:00 (NS Flush) 2 ml UNSCH PRN IV FLUSH 03/26/17 05:15 (Mylicon Chew) 80 mg QID PRN PO 03/26/17 05:15 03/26/17 09:46 (Percocet 5-325 Mg) 1 tab Q4H PRN PO 03/26/17 05:15 (Tamara-Colace) 2 tab Q12H PRN PO 03/26/17 05:15 03/28/17 07:44 (Zofran Inj) 4 mg Q6H PRN IV PUSH 03/26/17 05:15 (Percocet 7.5-325 Mg) 2 tab Q4H PRN PO 03/26/17 17:00 03/28/17 05:59 (Motrin) 600 mg Q6H PRN PO 03/26/17 22:30 03/28/17 07:45 (Jerel Colon MD R1) Assessment/Plan Problem List: (1) labor (2) Twin gestation in third trimester (3) Hematemesis with nausea (4) Hepatitis C (5) S/P tubal ligation (6) S/P Assessment and Plan Patient is a 26-year-old delivered at 35 weeks. Patient is day one after spontaneous vaginal delivery of baby A and primary of baby B. Also, s/p tubal ligation. * Continue routine care. * Motrin and Percocet when necessary for pain. Ordered dose of morphine 2mg IV 1 and Vistaril 50 mg by mouth 1. * Encourage OOB. * Pelvic rest for 6 weeks will need follow-up appointment at that time. * Contraception: Tubal at time of . * Anticipate discharge Thursday or Thursday. d/w Dr. Bernardo Discharge Planning Anticipate discharge tomorrow. (Jerel Colon MD R1) Jerel Colon MD R1 Mar 28, 2017 09:27 Cristopher Bernardo MD Mar 28, 2017 09:51
[2017-03-28 21:15] VITALS: BP 129/84; PULSE 110; RESP 20; TEMP 98.5; O2SAT 99
[2017-03-28] MEDS: SODIUM CHLORIDE 0.9% FLUSH 10 ML FLUSH IV FLUSH SCH (22:30)
[2017-03-28] MEDS: SIMETHICONE 80 MG CHEWABLE TAB PO PRN (22:31)
[2017-03-29] MEDS: oxyCODONE/ACETAMINOPHEN 7.5 MG/325 MG TAB PO PRN ×3 (02:51→12:35)
[2017-03-29] MEDS: DOCUSATE SODIUM 50 MG/SENNA 8.6 MG TAB PO PRN (07:56)
[2017-03-29] MEDS: IBUPROFEN 600 MG TAB PO PRN (07:57)
[2017-03-29 08:00] VITALS: BP 122/77; PULSE 81; RESP 20; TEMP 98.4
--- NOTE | 2017-03-29 08:30 | HHI.OB ---
Subjective Post Operative Day: 3 Remarks Postoperative day #3. AFVSS overnight. Pain 8/10, patient reports being very sore even with Percocet. Incision clean, dry, and intact, not draining. Decreased lochia. She is feeding the babies via bottle. Appetite good. No nausea or vomiting. Negative flatus. Negative bowel movement. Ambulating to the bathroom with difficulty. Denies fever, chills, cough, shortness of breath , chest pain, and calf pain. Patient's significant other requests for patient to stay one more day because she has to return to [facility] with the twins and he does not think that she can take care of them by herself in her current situation. (Eko,Chelsy Rodriguez MD R1) Objective Vitals/I&O Vital Signs Date Time Temp Pulse Resp B/P Pulse Ox O2 Delivery O2 Flow Rate FiO2 03/28/17 21:15 98.5 110 20 129/84 99 03/28/17 15:59 20 03/28/17 15:59 20 (EkoChelsy MD R1) Result Diagram: 03/27/17 1042 Objective Remarks GENERAL: Well-nourished, well-developed patient. CARDIOVASCULAR: Regular rate and rhythm without murmurs, gallops, or rubs. RESPIRATORY: Breath sounds equal bilaterally. No accessory muscle use. ABDOMEN/GI: Abdomen soft, tender below naval to incision, normal bowel sounds. Incision: Covered. Fundus: Firm, tender to palpation at umbilicus. GENITOURINARY: Light bleeding. EXTREMITIES: No cyanosis or edema, non-tender, without signs of DVT. Medications and IVs Current Medications Medications (Trade) Dose Ordered Sig/Kayode Route Start Time Stop Time Status Last Admin (NS Flush) 2 ml BID IV FLUSH 03/26/17 09:00 03/28/17 22:30 (NS Flush) 2 ml UNSCH PRN IV FLUSH 03/26/17 05:15 (Mylicon Chew) 80 mg QID PRN PO 03/26/17 05:15 03/28/17 22:31 (Percocet 5-325 Mg) 1 tab Q4H PRN PO 03/26/17 05:15 (Tamara-Colace) 2 tab Q12H PRN PO 03/26/17 05:15 03/29/17 07:56 (Zofran Inj) 4 mg Q6H PRN IV PUSH 03/26/17 05:15 (Percocet 7.5-325 Mg) 2 tab Q4H PRN PO 03/26/17 17:00 03/29/17 07:57 (Motrin) 600 mg Q6H PRN PO 03/26/17 22:30 03/29/17 07:57 (Chelsy Haas MD R1) Assessment/Plan Problem List: (1) labor (2) Twin gestation in third trimester (3) Hematemesis with nausea (4) Hepatitis C (5) S/P tubal ligation (6) S/P Assessment and Plan Patient is a 26-year-old delivered at 35 weeks. Patient is day 3 after spontaneous vaginal delivery of baby A and primary of baby B. Also, s/p tubal ligation. * Continue routine care. * Motrin and Percocet when necessary for pain. * Encourage OOB. * Pelvic rest for 6 weeks will need follow-up appointment at that time. * Contraception: Tubal at time of . * Anticipate discharge on Thursday. d/w Dr. Johnson Discharge Planning Anticipate discharge tomorrow. (Chelsy Haas MD R1) Collaborating MD Comments Patient is clinically doing well but is having difficulty tolerating pain. Will keep another day with plans for discharge tomorrow (Tabitha Johnson MD) Chelsy Haas MD R1 Mar 29, 2017 08:30 Tabitha Johnson MD Mar 31, 2017 12:48
[2017-03-29] MEDS: SODIUM CHLORIDE 0.9% FLUSH 10 ML FLUSH IV FLUSH SCH (09:00)
--- NOTE | 2017-03-29 11:14 | HHI.FPPN ---
Addendum to progress note ADDENDUM Reason for addendum: Additonal documentation Additional information On further discussion with the patient, pt's significant other, and nurses, decision was made to discharge pt to [facility] today. Notably, the twins will be in the NICU for a while, so pt will not be taking them with her and should be able to return to her recovery program at [facility] with light assistance. She needs to ambulate more frequently in order to hasten her recovery. Pt and significant other were informed of the new plan and expressed understanding and agreement. Discussed with Dr. Bernardo (Chelsy Haas MD R1) Additional information Patient seen and evaluated with resident under direct supervision, agree with assessment and plan. (Cristopher Bernardo MD) Chelsy Haas MD R1 Mar 29, 2017 11:14 Cristopher Bernardo MD Mar 29, 2017 12:40
--- NOTE | 2017-03-29 11:17 | HHI.DCPOC ---
Discharge Care Plan Diagnosis: (1) Hepatitis C (2) S/P (3) S/P tubal ligation (4) Twin , born in hospital, delivered Your Health Problems Are: Incisions/drains Pain Vaginal delivery delivery Report Symptoms to Your Doctor -Temperature above 100.5 degrees -Redness, of incision or excessive or foul smelling drainage -Unusual pain or calf pain -Increased vaginal bleeding -Painful or difficulty urinating -Feelings of extreme sadness or anxiety after 2 weeks Goals to Promote Your Health * To prevent worsening of your condition and complications * To maintain your health at the optimal level Directions to Meet Your Goals Take your medications as prescribed Follow your dietary instruction Follow activity as directed Ensure plenty of rest for recovery Drink fluids for hydration Keep your appointments as scheduled Take your immunizations and boosters as scheduled If your symptoms worsen call your PCP, if no PCP go to Urgent Care Center or Emergency Room Smoking is Dangerous to Your Health. Avoid second hand smoke Call the 24-hour crisis hotline for domestic abuse at Chelsy Haas MD R1 Mar 29, 2017 11:16
[2017-03-29] MEDS ORDERED: SENN1TAB PO (11:22)
[2017-03-29] MEDS ORDERED: IBUP-232 PO (11:22)
[2017-03-30 09:44] LABS: BATH SALTS (MDPV) UR NEG (NEG); ECSTASY (MDMA) UR NEG (NEG); HEROIN (6-ACETYLMORPHINE) UR NEG (NEG); K2 SPICE UR NEG (NEG); OBMETHADONE UR NEG (NEG); PHENCYCLIDINE URINE NEG (NEG)
[2017-03-30 09:45] LABS: GABAPENTIN UR NEG (NEG); HYDROMORPHONE U NEG (NEG); OXYCODONE (PERCODAN) NEG (NEG)
== END 2017-03-29 12:56 | disposition home or self-care (01) | DRG 765 ==
LOC: HOBED 13:53 → H2EA 18:06 → OBSVTOIN 03-25 14:44 → H2EB 03-25 15:59 → H1EA 03-26 06:48
PROVIDERS: ADMIT Obstetrics & Gynecology Maternal & Fetal Medicine; ATTEND Obstetrics & Gynecology Maternal & Fetal Medicine
PROC: 10E0XZZ Delivery of Products of Conception, External Approach (ICD-10-PCS; principal; 2017-03-26)
PROC: 10D00Z1 Extraction of Products of Conception, Low, Open Approach (ICD-10-PCS; 2017-03-26)
PROC: 0U570ZZ Destruction of Bilateral Fallopian Tubes, Open Approach (ICD-10-PCS; 2017-03-26)
PROC: 00HU33Z Insertion of Infusion Device into Spinal Canal, Percutaneous Approach (ICD-10-PCS; 2017-03-26)
PROC: 3E0R3CZ (ICD-10-PCS; 2017-03-26)
DX: O30.043 Twin pregnancy, dichorionic/diamniotic, third trimester (principal); O60.14X0 Preterm labor third trimester with preterm delivery third trimester, not applicable or unspecified; K92.0 Hematemesis; Z37.2 Twins, both liveborn; O36.5930 Maternal care for other known or suspected poor fetal growth, third trimester, not applicable or unspecified; O99.324 Drug use complicating childbirth; O99.12 Other diseases of the blood and blood-forming organs and certain disorders involving the immune mechanism complicating childbirth; O98.42 Viral hepatitis complicating childbirth; O99.344 Other mental disorders complicating childbirth; O32.1XX2 Maternal care for breech presentation, fetus 2; O32.6XX0 Maternal care for compound presentation, not applicable or unspecified; O13.4 Gestational [pregnancy-induced] hypertension without significant proteinuria, complicating childbirth; Z3A.35 35 weeks gestation of pregnancy; O36.8130 Decreased fetal movements, third trimester, not applicable or unspecified; B19.20 Unspecified viral hepatitis C without hepatic coma; F15.90 Other stimulant use, unspecified, uncomplicated; F41.9 Anxiety disorder, unspecified; Z72.0 Tobacco use; Z90.81 Acquired absence of spleen; Z30.2 Encounter for sterilization
CPT/HCPCS: 59025; 76815; 76818; 76820; 76821; 76937; 80053; 80307; 81001; 85007; 85027; 86850; 86900; 86901; 88302; 88307; 96372; 96374; 96375; G0481; J0290; J0690; J1130; J1200; J2270; J2274; J2405; J2540; J2590; J3010; J3105; J3475; J7120

== ENCOUNTER 2017-07-10 19:32 | Emergency (ER) | payer MEDICAID ==
[~2017-07-10] VITALS: Ht 160 cm; Wt 80.0 kg
[~2017-07-10 19:32] MED LIST changes: -ACET1TAB86 PO; +IBUP-232 PO; -LABE100T2 PO; -ZOFR8TAB PO
[2017-07-10 19:34] VITALS: BP 170/90; PULSE 80; RESP 16; TEMP 98.4; O2SAT 99
[2017-07-10] MEDS ORDERED: SODIUM CHLOR 0.9% 1000 ML INJ 1,000 ML IV SCH (20:11)
[2017-07-10] MEDS ORDERED: SODIUM CHLORIDE 0.9% FLUSH 10 ML FLUSH IV FLUSH PRN (20:15)
[2017-07-10] MEDS ORDERED: DICYCLOMINE HCL 20 MG/2 ML VIAL IM ONE (20:15)
[2017-07-10] MEDS ORDERED: ONDANSETRON HCL 4 MG/2 ML VIAL IVP ONE (20:15)
[2017-07-10 20:37] VITALS: O2SAT 99
[2017-07-10 20:46] LABS: BACTERIA, URINE RARE /hpf; BLOOD, URINE TRACE (NEG); GLUCOSE,URINE NEG (NEG); KETONE, URINE NEG (NEG); NITRITE,URINE NEG (NEG); SQUAMOUS EPITHELIAL CELL URINE 9 /hpf (0-5); URINE COLOR LIGHT-YELLOW (YELLW/STRAW)
[2017-07-10 20:47] LABS: COMMENT (UR) CULT NOT INDICATED; CULTURE IF INDICATED CULT NOT INDICATED
[2017-07-10 20:49] LABS: AUTOMATED NEUTROPHIL # 6.8 TH/MM3 (1.8-7.7); BASOPHIL # 0.1 TH/MM3 (0-0.2); BASOPHIL % 0.8 % (0.0-2.0); EOSINOPHIL # 0.4 TH/MM3 (0-0.4); EOSINOPHIL % 2.1 % (0.0-4.0); LYMPH % 48.5 % (9.0-44.0); LYMPHOCYTE # 8.1 TH/MM3 (1.0-4.8); MEAN CELL VOLUME 84.8 FL (80.0-100.0); MEAN CORPUSCULAR HEMOGLOBIN 28.4 PG (27.0-34.0); MEAN CORPUSCULAR HGB CONC 33.5 % (32.0-36.0); MONO % 7.4 % (0.0-8.0); NEUT % 41.2 % (16.0-70.0); PLATELET COUNT 604 TH/MM3 (150-450); RED BLOOD COUNT 5.07 MIL/MM3 (4.00-5.30); RED CELL DISTRIBUTION WIDTH 15.5 % (11.6-17.2); WHITE BLOOD COUNT 16.6 TH/MM3 (4.0-11.0)
[2017-07-10] MEDS ORDERED: IOHEXOL 350 MG/ML 10 ML VIAL (for RAD DIAG) IVCONTRAST ONE (20:52)
[2017-07-10 21:02] LABS: HEMO FLAGS AUTO DIFF
[2017-07-10 21:19] LABS: ALT (GPT) 98 U/L (10-53)
[2017-07-10 21:20] LABS: ALKALINE PHOSPHATASE 128 U/L (45-117); TOTAL BILIRUBIN ADULT 0.3 MG/DL (0.2-1.0)
[2017-07-10 21:24] LABS: ANION GAP 8 MEQ/L (5-15); AST (GOT) 71 U/L (15-37); BICARBONATE 24.9 MEQ/L (21.0-32.0); BLOOD UREA NITROGEN 7 MG/DL (7-18); CHLORIDE 104 MEQ/L (98-107); GLOMERULAR FILTRATION RATE 95 ML/MIN (>89); POTASSIUM 4.2 MEQ/L (3.5-5.1); SODIUM (NA) 137 MEQ/L (136-145)
--- NOTE | 2017-07-10 21:26 | RADRPT ---
EXAM DATE/TIME: 07/10/2017 20:52 [facility] COMPARISON: CT ABDOMEN & PELVIS W CONTRAST, July 06, 2016, 21:06. INDICATIONS : Left sided abdominal pain and vomiting blood. IV CONTRAST: 95 cc Omnipaque 350 (iohexol) IV ORAL CONTRAST: No oral contrast ingested. RADIATION DOSE: 10.85 CTDIvol (mGy) MEDICAL HISTORY : None SURGICAL HISTORY : Appendectomy. Cholecystectomy.Splenectomy ENCOUNTER: Initial ACUITY: 1 day PAIN SCALE: 8/10 LOCATION: Left abdomen TECHNIQUE: Volumetric scanning of the abdomen and pelvis was performed. Using automated exposure control and ad justment of the mA and/or kV according to patient size, radiation dose was kept as low as reasonably achievable to obtain optimal diagnostic quality images. DICOM format image data is available electro nically for review and comparison. FINDINGS: LOWER LUNGS: Stable scarring within the left lung base. LIVER: Homogeneous density without lesion. There is no dilation of the biliary tree. No calcified gallston es. SPLEEN: Surgically absent. A 1.5 cm splenule remains. PANCREAS: Within normal limits. KIDNEYS: Normal in size and shape. There is no mass, stone or hydronephrosis. ADRENAL GLANDS: Within normal limits. VASCULAR: There is no aortic aneurysm. BOWEL/MESENTERY: The stomach, small bowel, and colon demonstrate no acute abnormality. There is no free intraperitone al air or fluid. ABDOMINAL WALL: Within normal limits. RETROPERITONEUM: There is no lymphadenopathy. BLADDER: No wall thickening or mass. REPRODUCTIVE: Within normal limits. INGUINAL: There is no lymphadenopathy or hernia. MUSCULOSKELETAL: Within normal limits for patient age. CONCLUSION: 1. No acute abnormality. 2. The patient reports prior cholecystectomy. The gallbladder is present. 3. Prior splenectomy with residual splenule. Joaquín Pena Jr., MD on July 10, 2017 at 21:22 Board Certified Radiologist. This report was verified electronically.
[2017-07-10 21:51] LABS: NEUTROPHIL # MANUAL DIFF 8.6 TH/MM3 (1.8-7.7); POLYS (SEG NEUTROPHILS) 52 % (16-70); WBC DIFF SAMPLE 100
[2017-07-10 21:54] LABS: PLATELET ESTIMATE SMEAR HIGH (NORMAL); PLATELET MORPHOLOGY NORMAL (NORMAL); SCAN/DIFF FINAL DIFF MANUAL
[2017-07-10] MEDS ORDERED: OMEP20TA93 PO (21:54)
[2017-07-10] MEDS ORDERED: ONDA4TAB7 SL (21:54)
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
[2017-07-10] MEDS ORDERED: MORPHINE SULFATE 4 MG/ML INJ IV PUSH ONE (22:00)
== END 2017-07-10 22:18 | disposition home or self-care (01) ==
LOC: NEPC 19:32
DX: K29.70 Gastritis, unspecified, without bleeding (principal)
CPT/HCPCS: 74177; 80053; 81001; 83690; 84703; 85007; 85027; 96361; 96372; 96374; 96375; 99285; J0500; J2270; J2405; J7030; Q9967

== ENCOUNTER 2017-08-02 17:56 | Emergency (ER) | payer MEDICAID ==
[~2017-08-02] VITALS: Ht 162.6 cm; Wt 78.0 kg
[~2017-08-02 17:56] MED LIST changes: +OMEP20TA93 PO; +ONDA4TAB7 SL
[2017-08-02 17:58] VITALS: BP 135/77; PULSE 75; RESP 22; TEMP 97.6; O2SAT 100
== END 2017-08-02 21:34 | disposition left against medical advice (07) ==
LOC: NED 17:56
DX: M54.5 Low back pain (principal); Z53.21 Procedure and treatment not carried out due to patient leaving prior to being seen by health care provider

== ENCOUNTER 2017-09-13 22:06 | Emergency (ER) | payer MEDICAID ==
[2017-09-13 22:07] VITALS: BP 133/64; PULSE 79; RESP 16; TEMP 99; O2SAT 97
[2017-09-13] MEDS ORDERED: AMOX500T PO (23:27)
[2017-09-13] MEDS ORDERED: BUTA1CAP PO (23:27)
[2017-09-13] MEDS ORDERED: MAGICADU2 SWISH-SWAL (23:27)
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
== END 2017-09-13 23:47 | disposition home or self-care (01) ==
LOC: NEPD 22:06
DX: H66.92 Otitis media, unspecified, left ear (principal); J02.9 Acute pharyngitis, unspecified; F31.9 Bipolar disorder, unspecified; F41.9 Anxiety disorder, unspecified; F17.200 Nicotine dependence, unspecified, uncomplicated; Z79.899 Other long term (current) drug therapy; Z88.5 Allergy status to narcotic agent; Z88.8 Allergy status to other drugs, medicaments and biological substances
CPT/HCPCS: 99284